=== PATIENT | female | born 1990 | race Caucasian/White ===

== ENCOUNTER → 2016-08-18 | Outpatient (CLI) | payer BC, OTHER ==
[~2016-08-18] MED LIST: FERR325T5 PO; IBUP-1050 PO; LEVE1TAB57 PO; PRENTAB26 PO
[2016-08-18 09:32] LABS: BASO ABS # 0.08 K/uL (0-0.2); COMPLETE YES; EOS % 3.5 %; IG% 0.1 %; LYMPH % 29.1 %; LYMPH ABS # 2.41 K/uL (1.2-3.4); MEAN CELL VOLUME 82.4 fL (80-100); MEAN CORPUSCULAR HEMOGLOBIN 28.6 pg (25-34); MEAN CORPUSCULAR HGB CONC 34.8 g/dl (32-36); MEAN PLATELET VOLUME 9.7 fL (7.4-10.4); NEUT % 60.3 %; PLATELET COUNT 440 K/uL (130-400); WHITE BLOOD COUNT 8.28 K/uL (4.8-10.8)
[2016-08-18 10:06] LABS: ALT/SGPT 19 U/L (12-78); AST/SGOT 8 U/L (15-37); BLOOD UREA NITROGEN 8 mg/dl (7-18); BUN/CREATININE RATIO 9.3 (10-20); CARBON DIOXIDE 28 mmol/L (21-32); CHLORIDE 107 mmol/L (98-107); CHOLESTEROL 204 mg/dl (0-200); CREATININE 0.91 mg/dl (0.60-1.20); GLUCOSE 87 mg/dl (70-99); POTASSIUM 4.2 mmol/L (3.5-5.1); SODIUM 142 mmol/L (136-145)
[2016-08-18 10:17] LABS: ALB/GLOB RATIO 1.1 (0.9-2); ALKALINE PHOSPHATASE 97 U/L (45-117); CHOLESTEROL/HDL RATIO 3.1; HDL CHOLESTEROL 65 mg/dl; LDL CHOLESTEROL CALCULATED 126 mg/dl; TRIGLYCERIDES 65 mg/dl (0-150); VERY LOW DENSITY LIPOPROT CALC 13 mg/dl
== END | disposition home or self-care (01) ==
LOC: C.LAB 09:03
PROVIDERS: ATTEND Psychiatry & Neurology Geriatric Psychiatry
DX: Z79.899 Other long term (current) drug therapy (principal)

== ENCOUNTER → 2017-09-30 | Outpatient (CLI) | payer OTHER ==
[2017-09-30 09:27] LABS: BASO % 0.4 %; BASO ABS # 0.04 K/uL (0-0.2); EOS % 4.3 %; EOS ABS # 0.41 K/uL (0-0.5); HEMATOCRIT 44.5 % (37-47); HEMOGLOBIN 15.3 g/dL (12.0-16.0); IG# 0.02 K/uL (0.00-0.02); LYMPH % 27.4 %; LYMPH ABS # 2.59 K/uL (1.2-3.4); MEAN CELL VOLUME 84.8 fL (80-100); MEAN CORPUSCULAR HEMOGLOBIN 29.1 pg (25-34); MEAN CORPUSCULAR HGB CONC 34.4 g/dl (32-36); MEAN PLATELET VOLUME 10.1 fL (7.4-10.4); MONO % 5.3 %; NEUT % 62.4 %; PLATELET COUNT 423 K/uL (130-400); RED CELL DISTRIBUTION WIDTH CV 13.2 % (11.5-14.5); RED CELL DISTRIBUTION WIDTH SD 40.7 fL (36.4-46.3); WHITE BLOOD COUNT 9.46 K/uL (4.8-10.8)
[2017-09-30 09:55] LABS: ALT/SGPT 13 U/L (12-78); BLOOD UREA NITROGEN 5 mg/dl (7-18); CALCIUM 9.1 mg/dl (8.5-10.1); CARBON DIOXIDE 27 mmol/L (21-32); CHOLESTEROL 180 mg/dl (0-200); CREATININE 0.98 mg/dl (0.60-1.20); GLUCOSE 98 mg/dl (70-99); POTASSIUM 4.1 mmol/L (3.5-5.1); SODIUM 139 mmol/L (136-145)
[2017-09-30 10:05] LABS: ALKALINE PHOSPHATASE 89 U/L (45-117); AST/SGOT 11 U/L (15-37); LDL CHOLESTEROL CALCULATED 102 mg/dl; TOTAL PROTEIN 7.8 gm/dl (6.4-8.2)
== END | disposition home or self-care (01) ==
LOC: C.LAB 09:05
PROVIDERS: ATTEND Physician Assistant
DX: Z79.899 Other long term (current) drug therapy (principal)

== ENCOUNTER 2022-05-29 13:06 | Inpatient (IN) ==
[2022-05-29 13:55] LABS: Hematocrit (blood only) 37.8 % (34.1-44.9); Hemoglobin 12.6 g/dl (12.0-16.0); Mean Corpuscular Hgb Conc 33.3 g/dL (32.0-36.0); Mean Corpuscular Volume 87.1 fL (80.0-100.0); Platelet Count 307 K/uL (130-400); RDW Coefficient of Variation 13.9 % (11.5-14.5); RDW Standard Deviation 44.2 fL (36.4-46.3); Red Blood Count 4.34 M/uL (3.93-5.22); White Blood Count 18.88 K/ul (4.8-10.8)
[2022-05-29] MEDS: SODIUM CHLORIDE 0.9% 1000ML 1,000 ML IV SCH ×4 (14:10→19:19)
[2022-05-29 14:16] LABS: Alanine Aminotransferase 10 U/L (7-52); Albumin Level 3.2 gm/dl (3.4-5.0); Alkaline Phosphatase 204 U/L (34-104); Anion Gap 7 (3-11); Aspartate Aminotransferase 10 U/L (13-39); BUN Creatinine Ratio 10.4 (10-20); Basophils # (auto) 0.07 K/uL (0-0.2); Basophils % (auto) 0.4 %; Bilirubin,Total 1.1 mg/dl (0.2-1.0); Blood Urea Nitrogen 23 mg/dl (6-23); Calcium 8.5 mg/dl (8.5-10.1); Carbon Dioxide 24 mmol/L (21-32); Chloride 99 mmol/L (98-107); Dohle Bodies 1+; Eosinophils # (auto) 0.08 K/uL (0-0.50); Eosinophils % (auto) 0.4 %; Est GFR (African American) 32.9 ml/min; Est GFR (Non-African American) 28.4 ml/min; Globulin 3.2 gm/dl (2.5-4.0); Glucose 164 mg/dl (70-99(Fasting)); Immature Granulocytes # (auto) 0.19 K/uL (0.00-0.02); Lipase 7 U/L (11-82); Lymphocytes # (auto) 0.66 K/uL (1.2-3.4); Lymphocytes % (auto) 3.5 %; Monocytes # (auto) 1.13 K/uL (0.24-0.82); Neutrophils # (auto) 16.75 K/uL (1.4-6.5); Neutrophils % (auto) 88.7 %; Potassium 3.5 mmol/L (3.5-5.1); Sodium 130 mmol/L (136-145); Total Protein 6.4 gm/dl (6.0-8.3)
[2022-05-29 14:23] LABS: Appearance Urine Turbid (Clear); Bacteria Urine Automated 4+ (Negative); Bilirubin Urine Negative (Negative); Blood Urine Trace (Negative); Color Urine Yellow; Epithelial Cell Urine Auto >30 /lpf (0-5); Glucose Urine UA Negative (Negative); Ketones Urine Negative (Negative); Leukocyte Esterase Urine 3+ (Negative); Nitrite Urine Negative (Negative); Protein Urine 2+ (Negative); RBC Urine Automated 0-4 /hpf (0-4); Urobilinogen Urine Negative (Negative); WBC Urine Automated >30 /hpf (0-5); pH Urine 5.5 (4.5-7.5)
[2022-05-29 14:33] LABS: Bilirubin Direct 0.3 mg/dl (0-0.2)
--- NOTE | 2022-05-29 14:35 | Emergency Department Note ---
History of Present Illness General Chief complaint: Vomiting Stated complaint: VOMITING, BACK PAIN,UTI, HEADACH Time Seen by Provider: 05/29/22 13:52 History of Present Illness Provider complaint: Nausea vomiting dysuria Onset (ago): day(s) 9 Maximum Pain Intensity: 9 Associated symptoms: + cough, + headaches, + malaise, + nausea/vomiting and + weakness; no chest pain 32-year-old female with history of bipolar disorder presents emergency department for nausea vomiting area. Patient reports that for the last 9 days she has been having dysuria that is progressively gotten worse and has been nausea and vomiting. Patient states she cannot keep anything in her. No hematemesis coffee-ground emesis or bilious vomiting. No melena or hematochezia. No discharge from the vagina. No hematuria. Patient reports she was diagnosed with UTI last week but did not take any medications that she was prescribed including her antibiotics. Home Medications Medication Instructions Recorded Confirmed Type gabapentin 800 mg tablet 800 mg PO TID #270 tabs 03/28/19 05/29/22 History levetiracetam 1,000 mg tablet 1,000 mg PO BID 90 days #180 tabs 04/07/22 05/29/22 Rx rizatriptan 10 mg tablet (Maxalt) 10 mg PO .COMPLEX PRN migraine 04/07/22 Rx headache #27 tabs verapamil 180 mg tablet,extended 180 mg PO DAILY 90 days #90 tabs 04/07/22 05/29/22 Rx release escitalopram oxalate 10 mg tablet 10 mg PO QAM 05/29/22 05/29/22 History lithium carbonate 600 mg capsule 600 mg PO AMHS 05/29/22 05/29/22 History propranolol 20 mg tablet 20 mg PO BID PRN Anxiety 05/29/22 05/29/22 History Allergies Allergy/AdvReac Type Severity Reaction Status Date / Time amoxicillin Allergy Unknown RASH Verified 04/07/22 10:15 Penicillins Allergy Verified 04/07/22 10:15 Past Med/Surg History Medical History Anxiety Bipolar affective disorder, current episode manic Common migraine without aura Epilepsy Focal epilepsy with impairment of consciousness Suicidal ideation Surgical History History of cholecystectomy History of oral surgery Family History Grandmother (Maternal) Diabetes Thyroid disease Social History Smoking Status: Current every day smoker Tobacco Type: E-cigarettes / Vaping Feels Safe at Home: Yes Review of Systems A total of 10 systems reviewed and were otherwise negative Physical Exam Vital Signs Vital Signs - 24 hr 05/29/22 13:28 05/29/22 13:31 05/29/22 14:09 Temperature 36.8 C Temperature Source Temporal Artery Scan Pulse Rate 86 Pulse Rate [Right Finger] Respiratory Rate 20 Respiratory Effort / Characteristics Non-Labored Respiratory Depth Normal Blood Pressure [Left Arm] 70/45 L Blood Pressure [Right Arm] 64/47 L Blood Pressure Mean [Left Arm] 53 Blood Pressure Mean [Right Arm] 52 Blood Pressure Position Sitting Blood Pressure Position [Left Arm] Sitting Blood Pressure Position [Right Arm] Sitting Pulse Oximetry 95 96 Oxygen Delivery Method Room Air Room Air Sepsis Recent Fever Within 48 Hours No Sepsis New/Unexplained Change in Mental Status N/A Sepsis Action Taken by Nursing No Action Required 05/29/22 14:10 05/29/22 14:24 05/29/22 14:39 Temperature Temperature Source Pulse Rate Pulse Rate [Right Finger] 89 90 Respiratory Rate Respiratory Effort / Characteristics Respiratory Depth Blood Pressure [Left Arm] 99/63 L Blood Pressure [Right Arm] 101/58 L Blood Pressure Mean [Left Arm] 75 Blood Pressure Mean [Right Arm] 72 Blood Pressure Position Blood Pressure Position [Left Arm] Blood Pressure Position [Right Arm] Pulse Oximetry 97 98 Oxygen Delivery Method Room Air Room Air Sepsis Recent Fever Within 48 Hours Sepsis New/Unexplained Change in Mental Status Sepsis Action Taken by Nursing 05/29/22 15:00 05/29/22 15:05 Temperature Temperature Source Pulse Rate Pulse Rate [Right Finger] 92 H 91 H Respiratory Rate 16 Respiratory Effort / Characteristics Respiratory Depth Blood Pressure [Left Arm] 99/63 L Blood Pressure [Right Arm] 99/63 L Blood Pressure Mean [Left Arm] 75 Blood Pressure Mean [Right Arm] 75 Blood Pressure Position Blood Pressure Position [Left Arm] Lying Blood Pressure Position [Right Arm] Lying Pulse Oximetry 95 94 Oxygen Delivery Method Room Air Room Air Sepsis Recent Fever Within 48 Hours Sepsis New/Unexplained Change in Mental Status Sepsis Action Taken by Nursing Physical Exam GENERAL: Ill-appearing HENT: Exam performed. -Head: Normocephalic and atraumatic. -Right Ear: External ear normal. No mastoid tenderness. -Left Ear: External ear normal. No mastoid tenderness. -Mouth/Throat: The oropharynx is clear and moist. No trismus in the jaw. No dental abscesses or uvula swelling. No oropharyngeal exudate or tonsillar abscesses. EYES: Conjunctivae and EOM are normal. Pupils are equal, round, and reactive to light. Right eye exhibits no discharge. Left eye exhibits no discharge. No scler al icterus. NECK: Normal range of motion. Neck supple. No JVD present. No spinous process tenderness present. No carotid bruit present. No rigidity. No tracheal deviation and normal range of motion present. No Brudzinski's sign and no Kernig's sign noted. CV: Tachycardic rate, regular rhythm, normal heart sounds and intact distal pulses. There is no peripheral edema. Palpable radial pulses bue. PULM/CHEST: Effort normal and breath sounds normal. No respiratory distress. No stridor. She has no wheezes. She has no rales. -Chest Wall: She exhibits no tenderness. ABD: The abdomen is soft. Tenderness over the suprapubic area. MUSC/SKEL: Normal range of motion. There is no peripheral edema, tenderness or deformity. LYMPH: No cervical adenopathy. NEURO: She is alert and oriented to person, place, and time. She has normal strength. No cranial nerve deficit or sensory deficit. GCS eye subscore is 4. GCS verbal subscore is 5. GCS motor subscore is 6. Cerebellar tests wnl. Course Course 1352: The patient was evaluated in room A3. A complete history and physical exam was performed Cardiac monitoring: An order was placed for continuous cardiac monitoring. The monitor shows a rate of 110 with sinus tachycardia rhythm Patient was found to be tachycardic and hypotensive at bedside. 2 large bore IVs were placed on the patient and IV fluids were immediate started on the patient 2 L normal saline wide open. Sepsis protocols were initiated. SUMNER protocol showed no free fluid in the abdomen and a collapsed IVC. 1518: Vital signs improved with IV fluids running. Patient's creatinine is greater than 2, therefore CT of the abdomen was conducted without contrast. Labs show leukocytosis of 18 and lactic acid of 2.9. Sodium 130 total bilirubin 1.1 direct bilirubin 0.3 troponin 16.6 urinalysis does not appear infected. Marshall level is mildly elevated 1.5. This is thought to be due to the patient's acute kidney injury. Patient reports no suicidal homicidal ideation patient reports not taking excessive amounts of her lithium. CT of the abdomen shows pyelonephritis. Patient treated with Cipro IV piggyback. Patient be admitted to the [facility] team. Administered Medications Sodium Chloride (Nss 1000ml) 1,000 mls @ 999 mls/hr IV .Q1H1M TAMIR Stop: 05/29/22 16:00 Last Admin: 05/29/22 15:02 Dose: 999 mls/hr Documented By: Infusion: 05/29/22 15:02 Dose: 999 mls/hr Documented By: Admin: 05/29/22 14:10 Dose: 999 mls/hr Documented By: RADHA Ciprofloxacin (Cipro / D5w) 400 mg in 200 mls @ 100 mls/hr IV NOW STA; Protocol Stop: 05/29/22 16:53 Last Admin: 05/29/22 15:08 Dose: 100 mls/hr Documented By: MEDHAT Critical Care Time Critical Care Time: Yes Total Critical Care Time: 36 I have personally spent greater than 36 minutes of critical care time in the direct management of this patient. This includes bedside care, interpretation of diagnostic studies, and testing, discussion with consultants, patient, and family members, and other required patient management activities. This 36 minutes is in excess of all separately billable procedures. Medical Decision Making Laboratory Data Result diagrams: 05/29/22 13:43 05/29/22 13:43 Lab Results 05/29/22 05/29/22 05/29/22 Range/Units 13:43 13:43 14:04 WBC 18.88 H (4.8-10.8) K/ul RBC 4.34 (3.93-5.22) M/uL Hgb 12.6 (12.0-16.0) g/dl Hct 37.8 (34.1-44.9) % MCV 87.1 (80.0-100.0) fL MCH 29.0 (25.0-34.0) pg MCHC 33.3 (32.0-36.0) g/dL RDW Std Deviation 44.2 (36.4-46.3) fL RDW Coeff of Charlie 13.9 (11.5-14.5) % Plt Count 307 (130-400) K/uL MPV 10.0 (9.4-12.3) fL Immature Gran % (Auto) 1.0 % Neut % (Auto) 88.7 % Lymph % (Auto) 3.5 % [place] % (Auto) 6.0 % Eos % (Auto) 0.4 % Baso % (Auto) 0.4 % Neut # (Auto) 16.75 H (1.4-6.5) K/uL Lymph # (Auto) 0.66 L (1.2-3.4) K/uL [place] # (Auto) 1.13 H (0.24-0.82) K/uL Eos # (Auto) 0.08 (0-0.50) K/uL Baso # (Auto) 0.07 (0-0.2) K/uL Immature Gran # (Auto) 0.19 H (0.00-0.02) K/uL Dohle Bodies 1+ PT (9.0-12.0) Seconds INR (0.9-1.1) APTT (21.0-31.0) Seconds PTT Ratio Sodium 130 L (136-145) mmol/L Potassium 3.5 (3.5-5.1) mmol/L Chloride 99 (98-107) mmol/L Carbon Dioxide 24 (21-32) mmol/L Anion Gap 7 (3-11) BUN 23 (6-23) mg/dl Creatinine 2.21 H (0.6-1.2) mg/dl Est Cr Clr Drug Dosing Not Reportable Est GFR ( Amer) 32.9 ml/min Est GFR (Non-Af Amer) 28.4 ml/min BUN/Creatinine Ratio 10.4 (10-20) Glucose 164 H (70-99(Fasting)) mg/dl Lactate (0.4-2.0) mmol/L Calcium 8.5 (8.5-10.1) mg/dl Magnesium 2.0 (1.7-2.4) mg/dl Total Bilirubin 1.1 H (0.2-1.0) mg/dl Direct Bilirubin 0.3 H (0-0.2) mg/dl AST 10 L (13-39) U/L ALT 10 (7-52) U/L Alkaline Phosphatase 204 H (34-104) U/L Troponin I High Sens 16.6 H (0-14) pg/ml Total Protein 6.4 (6.0-8.3) gm/dl Albumin 3.2 L (3.4-5.0) gm/dl Globulin 3.2 (2.5-4.0) gm/dl Albumin/Globulin Ratio 1.0 (0.9-2) Lipase 7 L (11-82) U/L Procalcitonin (0-0.5) ng/ml Urine Color Yellow Urine Appearance Turbid A (Clear) Urine pH 5.5 (4.5-7.5) Ur Specific [place] 1.010 (1.000-1.030) Urine Protein 2+ H (Negative) Urine Glucose (UA) Negative (Negative) Urine Ketones Negative (Negative) Urine Blood Trace H (Negative) Urine Nitrite Negative (Negative) Urine Bilirubin Negative (Negative) Urine Urobilinogen Negative (Negative) Ur Leukocyte Esterase 3+ H (Negative) Urine WBC (Auto) >30 H (0-5) /hpf Urine RBC (Auto) 0-4 (0-4) /hpf U Hyaline Cast (Auto) 1-5 (0-5) /lpf U Epithel Cells (Auto) >30 H (0-5) /lpf Urine Bacteria (Auto) 4+ H (Negative) POC Ur Test (NEG) Marshall (0.6-1.2) mmol/L SARS-CoV-2, RNA, NAAT (NEGATIVE) 05/29/22 05/29/22 05/29/22 Range/Units 14:04 14:12 14:12 WBC (4.8-10.8) K/ul RBC (3.93-5.22) M/uL Hgb (12.0-16.0) g/dl Hct (34.1-44.9) % MCV (80.0-100.0) fL MCH (25.0-34.0) pg MCHC (32.0-36.0) g/dL RDW Std Deviation (36.4-46.3) fL RDW Coeff of Charlie (11.5-14.5) % Plt Count (130-400) K/uL MPV (9.4-12.3) fL Immature Gran % (Auto) % Neut % (Auto) % Lymph % (Auto) % [place] % (Auto) % Eos % (Auto) % Baso % (Auto) % Neut # (Auto) (1.4-6.5) K/uL Lymph # (Auto) (1.2-3.4) K/uL [place] # (Auto) (0.24-0.82) K/uL Eos # (Auto) (0-0.50) K/uL Baso # (Auto) (0-0.2) K/uL Immature Gran # (Auto) (0.00-0.02) K/uL Dohle Bodies PT 11.9 (9.0-12.0) Seconds INR 1.1 (0.9-1.1) APTT 35.3 H (21.0-31.0) Seconds PTT Ratio 1.3 Sodium (136-145) mmol/L Potassium (3.5-5.1) mmol/L Chloride (98-107) mmol/L Carbon Dioxide (21-32) mmol/L Anion Gap (3-11) BUN (6-23) mg/dl Creatinine (0.6-1.2) mg/dl Est Cr Clr Drug Dosing Est GFR ( Amer) ml/min Est GFR (Non-Af Amer) ml/min BUN/Creatinine Ratio (10-20) Glucose (70-99(Fasting)) mg/dl Lactate 2.9 H* (0.4-2.0) mmol/L Calcium (8.5-10.1) mg/dl Magnesium (1.7-2.4) mg/dl Total Bilirubin (0.2-1.0) mg/dl Direct Bilirubin (0-0.2) mg/dl AST (13-39) U/L ALT (7-52) U/L Alkaline Phosphatase (34-104) U/L Troponin I High Sens (0-14) pg/ml Total Protein (6.0-8.3) gm/dl Albumin (3.4-5.0) gm/dl Globulin (2.5-4.0) gm/dl Albumin/Globulin Ratio (0.9-2) Lipase (11-82) U/L Procalcitonin (0-0.5) ng/ml Urine Color Urine Appearance (Clear) Urine pH (4.5-7.5) Ur Specific [place] (1.000-1.030) Urine Protein (Negative) Urine Glucose (UA) (Negative) Urine Ketones (Negative) Urine Blood (Negative) Urine Nitrite (Negative) Urine Bilirubin (Negative) Urine Urobilinogen (Negative) Ur Leukocyte Esterase (Negative) Urine WBC (Auto) (0-5) /hpf Urine RBC (Auto) (0-4) /hpf U Hyaline Cast (Auto) (0-5) /lpf U Epithel Cells (Auto) (0-5) /lpf Urine Bacteria (Auto) (Negative) POC Ur Test NEG (NEG) [place] (0.6-1.2) mmol/L SARS-CoV-2, RNA, NAAT (NEGATIVE) 05/29/22 05/29/22 05/29/22 Range/Units 14:12 14:12 14:32 WBC (4.8-10.8) K/ul RBC (3.93-5.22) M/uL Hgb (12.0-16.0) g/dl Hct (34.1-44.9) % MCV (80.0-100.0) fL MCH (25.0-34.0) pg MCHC (32.0-36.0) g/dL RDW Std Deviation (36.4-46.3) fL RDW Coeff of Charlie (11.5-14.5) % Plt Count (130-400) K/uL MPV (9.4-12.3) fL Immature Gran % (Auto) % Neut % (Auto) % Lymph % (Auto) % [place] % (Auto) % Eos % (Auto) % Baso % (Auto) % Neut # (Auto) (1.4-6.5) K/uL Lymph # (Auto) (1.2-3.4) K/uL [place] # (Auto) (0.24-0.82) K/uL Eos # (Auto) (0-0.50) K/uL Baso # (Auto) (0-0.2) K/uL Immature Gran # (Auto) (0.00-0.02) K/uL Dohle Bodies PT (9.0-12.0) Seconds INR (0.9-1.1) APTT (21.0-31.0) Seconds PTT Ratio Sodium (136-145) mmol/L Potassium (3.5-5.1) mmol/L Chloride (98-107) mmol/L Carbon Dioxide (21-32) mmol/L Anion Gap (3-11) BUN (6-23) mg/dl Creatinine (0.6-1.2) mg/dl Est Cr Clr Drug Dosing Est GFR ( Amer) ml/min Est GFR (Non-Af Amer) ml/min BUN/Creatinine Ratio (10-20) Glucose (70-99(Fasting)) mg/dl Lactate (0.4-2.0) mmol/L Calcium (8.5-10.1) mg/dl Magnesium (1.7-2.4) mg/dl Total Bilirubin (0.2-1.0) mg/dl Direct Bilirubin (0-0.2) mg/dl AST (13-39) U/L ALT (7-52) U/L Alkaline Phosphatase (34-104) U/L Troponin I High Sens (0-14) pg/ml Total Protein (6.0-8.3) gm/dl Albumin (3.4-5.0) gm/dl Globulin (2.5-4.0) gm/dl Albumin/Globulin Ratio (0.9-2) Lipase (11-82) U/L Procalcitonin 12.19 H (0-0.5) ng/ml Urine Color Urine Appearance (Clear) Urine pH (4.5-7.5) Ur Specific [place] (1.000-1.030) Urine Protein (Negative) Urine Glucose (UA) (Negative) Urine Ketones (Negative) Urine Blood (Negative) Urine Nitrite (Negative) Urine Bilirubin (Negative) Urine Urobilinogen (Negative) Ur Leukocyte Esterase (Negative) Urine WBC (Auto) (0-5) /hpf Urine RBC (Auto) (0-4) /hpf U Hyaline Cast (Auto) (0-5) /lpf U Epithel Cells (Auto) (0-5) /lpf Urine Bacteria (Auto) (Negative) POC Ur Test (NEG) [place] 1.5 H (0.6-1.2) mmol/L SARS-CoV-2, RNA, NAAT NEGATIVE (NEGATIVE) Imaging Data Radiologist's Impression: Chest X-Ray 05/29/22 13:53 XR chest 1V portable HISTORY: 32 years-old Female Sepsis acute sepsis COMPARISON: 12/16/2007 TECHNIQUE: AP view of the chest FINDINGS: Cardiomediastinal and hilar silhouettes are within normal limits. No pneumo thorax, pleural effusion, airspace consolidation or overt pulmonary edema. Bones appear grossly intact. IMPRESSION: No acute process. ACT 112: Negative or not required by law. The above report was generated using voice recognition software. It may contain grammatical, syntax or spelling errors. Electronically signed by: Sailnas Armstrong M.D. 05/29/2022 2:37 PM Abdomen/Pelvis CT 05/29/22 14:[address] WITHOUT CONTRAST CT DOSE: 674.66 mGy.cm HISTORY: Acute dysuria with bilateral flank pain tiffany dysuria hypotension ro kidney stone TECHNIQUE: Multiaxial CT images of the abdomen and pelvis were performed without contrast. A dose lowering technique was utilized adhering to the principles of ALARA. COMPARISON STUDY: Pelvic ultrasound 09/28/2014 FINDINGS: Trace pleural effusions. Subsegmental bibasilar atelectasis. No pneumatosis or pneumoperitoneum. The unenhanced spleen measures within the upper limits of normal in size. Cholecystectomy. The liver, pancreas and adrenal glands are within normal limits. Right greater than left bilateral perinephric stranding and pelvocaliectasis. No jeff hydronephrosis or urolith identified. Circumferential wall thickening of the urinary bladder. IUD of the pelvis appears to be in satisfactory positioning. No adnexal mass lesions. Unremarkable aorta. No lymphadenopathy. No bowel obstruction. Mild wall thickening of the duodenum is likely secondary to the adjacent renal findings. Air-fluid levels are noted throughout the large and small bowel. Noninflamed appendix. Unremarkable soft tissues. Moderate disc space narrowing with posterior disc osteophyte complex at L5-S1. No acute fracture. IMPRESSION: 1. Right greater than left perinephric inflammatory stranding with associated pelvocaliectasis and urinary bladder wall thickening. No urolith or jeff hydronephrosis. Findings are suggestive of an ascending infection with cystitis. 2. No bowel obstruction or bowel wall thickening. 3. Trace pleural effusions. 4. Cholecystectomy. ACT 112: Negative or not required by law. The above report was generated using voice recognition software. It may contain grammatical, syntax or spelling errors. Electronically signed by: Salinas Armstrong M.D. 05/29/2022 3:10 PM ECG Data Indication: + tachycardia Rate (beats per minute): 90 Rhythm: + normal sinus ECG Intervals/blocks: + Normal QRS, + Normal [place] and + Normal QT-c ECG ST segments: + Normal ST segments [facility] Narrative 1352: The patient was evaluated in room A3. A complete history and physical exam was performed Cardiac monitoring: An order was placed for continuous cardiac monitoring. The monitor shows a rate of 110 with sinus tachycardia rhythm Patient was found to be tachycardic and hypotensive at bedside. 2 large bore IVs were placed on the patient and IV fluids were immediate started on the patient 2 L normal saline wide open. Sepsis protocols were initiated. SUMNER protocol showed no free fluid in the abdomen and a collapsed IVC. 1518: Vital signs improved with IV fluids running. Patient's creatinine is greater than 2, therefore CT of the abdomen was conducted without contrast. Labs show leukocytosis of 18 and lactic acid of 2.9. Sodium 130 total bilirubin 1.1 direct bilirubin 0.3 troponin 16.6 urinalysis does not appear infected. Marshall level is mildly elevated 1.5. This is thought to be due to the patient' s acute kidney injury. Patient reports no suicidal homicidal ideation patient reports not taking excessive amounts of her lithium. CT of the abdomen shows pyelonephritis. Patient treated with Cipro IV piggyback. Patient be admitted to the [facility] team. Impression & Plan Sepsis, Pyelonephritis Discharge Plan Visit Data Chief Complaint: Vomiting Stated Complaint: VOMITING, BACK PAIN,UTI, HEADACH ED Provider: En Walls Discharge Problem: Sepsis, Pyelonephritis Patient Disposition: Admitted As Inpatient Forms Stand Alone Forms: [facility] Prescriptions Prescriptions: No Action rizatriptan [Maxalt] 10 mg tablet 10 mg PO .COMPLEX PRN (Reason: migraine headache) Qty: 27 3RF Rx Instructions: take 1 tab at onset of headache; if no relief may repeat in 2hr prn verapamil 180 mg tablet extended release 180 mg PO DAILY 90 Days Qty: 90 3RF levetiracetam 1,000 mg tablet 1,000 mg PO BID 90 Days Qty: 180 3RF gabapentin 800 mg tablet 800 mg PO TID Qty: 270 Rx Instructions: morning,noon and bedtime lithium carbonate 600 mg capsule 600 mg PO AMHS propranolol 20 mg tablet 20 mg PO BID PRN (Reason: Anxiety) escitalopram oxalate 10 mg tablet 10 mg PO QAM Referrals Referrals: Adiel Yin MD [Primary Care Provider] -
[2022-05-29 14:37] LABS: INR 1.1 (0.9-1.1); Partial Thromboplastin Ratio 1.3; Partial Thromboplastin Time 35.3 Seconds (21.0-31.0); Prothrombin Time 11.9 Seconds (9.0-12.0)
[2022-05-29 14:38] LABS: Troponin I High Sensitivity 16.6 pg/ml (0-14)
--- NOTE | 2022-05-29 14:38 | XRay Report ---
XR chest 1V portable HISTORY: 32 years-old Female Sepsis acute sepsis COMPARISON: 12/16/2007 TECHNIQUE: AP view of the chest FINDINGS: Cardiomediastinal and hilar silhouettes are within normal limits. No pneumothorax, pleural effusion, airspace consolidation or overt pulmonary edema. Bones appear grossly intact. IMPRESSION: No acute process. ACT 112: Negative or not required by law. The above report was generated using voice recognition software. It may contain grammatical, syntax o r spelling errors. Electronically signed by: Salinas Armstrong M.D. 05/29/2022 2:37 PM
[2022-05-29] MEDS ORDERED: CIPROFLOXACIN / D5W 400 MG/200 ML BAG IV STA (14:54)
--- NOTE | 2022-05-29 15:12 | CT Scan Report ---
ABDOMEN AND PELVIS CT WITHOUT CONTRAST CT DOSE: 674.66 mGy.cm HISTORY: Acute dysuria with bilateral flank pain tiffany dysuria hypotension ro kidney stone TECHNIQUE: Multiaxial CT images of the abdomen and pelvis were performed without contrast. A dose lo wering technique was utilized adhering to the principles of ALARA. COMPARISON STUDY: Pelvic ultrasound 09/28/2014 FINDINGS: Trace pleural effusions. Subsegmental bibasilar atelectasis. No pneumatosis or pneumoperito neum. The unenhanced spleen measures within the upper limits of normal in size. Cholecystectomy. The liver, pancreas and adrenal glands are within normal limits. Right greater than left bilateral perinephric stranding and pelvocaliectasis. No jeff hydronephrosis or urolith identified. Circumferential wall thickening of the urinary bladder. IUD of the pelvis gabriel ears to be in satisfactory positioning. No adnexal mass lesions. Unremarkable aorta. No lymphadenopat hy. No bowel obstruction. Mild wall thickening of the duodenum is likely secondary to the adjacent renal findings. Air-fluid levels are noted throughout the large and small bowel. Noninflamed appendix. Unre markable soft tissues. Moderate disc space narrowing with posterior disc osteophyte complex at L5-S1. No acute fracture. IMPRESSION: 1. Right greater than left perinephric inflammatory stranding with associated pelvocaliectasis and ur inary bladder wall thickening. No urolith or jeff hydronephrosis. Findings are suggestive of an asce nding infection with cystitis. 2. No bowel obstruction or bowel wall thickening. 3. Trace pleural effusions. 4. Cholecystectomy. ACT 112: Negative or not required by law. The above report was generated using voice recognition software. It may contain grammatical, syntax o r spelling errors. Electronically signed by: Salinas Armstrong M.D. 05/29/2022 3:10 PM
--- NOTE | 2022-05-29 15:42 | History & Physical Report ---
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 Sepsis POA Right-sided pyelonephritis Acute kidney injury Mild hyponatremia Reported UTI-like symptoms since past 5 days, fever and back pain for past 3 days Hypotensive on presentation; saturating well on room air. Afebrile in the ED Lactate2.9 WBC18.8 Creatinine2.29; baseline creatinine of 0.8 4 weeks back Urinalysis shows 4+ bacteria CT abdomen pelvis shows right greater than left perinephric inflammatory stranding and urinary bladder thickening. Plan; -Start on IV ceftriaxone. Follow-up on urine culture and blood culture results; de-escalate antibiotic as per culture results -Continue NS at 125 cc/h. Repeat lactate pending -Follow-up on BMP tomorrow a.m. for follow-up on AVELINO and hyponatremia Elevated lithium level -Serum lithium level is 1.5; likely due to AVELINO. -Plan is to hold lithium; repeat serum lithium level tomorrow a.m. Chronic conditions; Seizure disorderadjust Keppra dosing as per GFR. Started on 500 mg twice daily. Will discuss with pharmacy regarding dosing. Gabapentin dose adjusted to 300 twice daily Continue escitalopram, verapamil and propanolol DVT heparin full code History of Present Illness Chief Complaint: chills, urinary symptoms, back pain Primary Care Provider: Adiel Yin MD This is a 32yo F with a PMH of bipolar disorder, seizure disorder, migraine headaches, anxiety who presents with worsening urinary symptoms and chills over the past week. Was diagnosed with a UTI last week with dysuria and increased urgency but did not start antibiotic. Over past week, patient has developed chills, fever, lightheadedness, back pain R>L. Endorses poor PO intake, dark concentrated urine and worsened migraine headaches. Feeling much improved with IV fluids in ER. Still experiencing sharp pain in R lower back. Denies syncope, chest pain, SOB, wheezing, hematuria, constipation or diarrhea. Took AM medications today. Allergies Allergy/AdvReac Type Severity Reaction Status Date / Time amoxicillin Allergy Unknown RASH Verified 04/07/22 10:15 Penicillins Allergy Verified 04/07/22 10:15 Home Medications Medication Instructions Recorded Confirmed Type gabapentin 800 mg tablet 800 mg PO TID #270 tabs 03/28/19 05/29/22 History levetiracetam 1,000 mg tablet 1,000 mg PO BID 90 days #180 tabs 04/07/22 05/29/22 Rx rizatriptan 10 mg tablet (Maxalt) 10 mg PO .COMPLEX PRN migraine 04/07/22 05/29/22 Rx headache #27 tabs verapamil 180 mg tablet,extended 180 mg PO DAILY 90 days #90 tabs 04/07/22 05/29/22 Rx release escitalopram oxalate 10 mg tablet 10 mg PO QAM 05/29/22 05/29/22 History lithium carbonate 600 mg capsule 600 mg PO AMHS 05/29/22 05/29/22 History propranolol 20 mg tablet 20 mg PO BID PRN Anxiety 05/29/22 05/29/22 History Past Med/Surg History Medical History Anxiety Bipolar affective disorder, current episode manic Common migraine without aura Epilepsy Focal epilepsy with impairment of consciousness Suicidal ideation Surgical History History of cholecystectomy History of oral surgery Family History Grandmother (Maternal) Diabetes Thyroid disease Social History Smoking Status: Current every day smoker Tobacco Type: E-cigarettes / Vaping Hx Alcohol Use: Yes Alcohol Intake Frequency: 2-4 x/Month Hx Substance Use: No Feels Safe at Home: Yes Review of Systems Review of Systems: At least ten systems reviewed and negative except as noted in the HPI. Physical Exam Physical Exam: Constitutional: WD/WN, vitals as above, NAD, sitting up in bed, pleasant, conversing easily Respiratory: normal respiratory effort, lungs clear to auscultation, no wheeze, rales, rhonchi. Normal insp/exp effort, no accessory muscle use Cardiovascular: RRR, no murmur, no edema Vessels: no JVD or carotid bruit Chest: normal inspection of chest Abdomen: Suprapubic tenderness present. Right costophrenic angle tenderness. Musculoskeletal: no cyanosis or clubbing, extremities motor strength 5/5 Skin: no rashes, warm and dry normal turgor Neurologic: PERRL, EOMI, accommodation nl, no face palsy, no dysarthria CN's II- XI intact bilaterally and moves all extremities Psychiatric: A+Ox3, euthymic affect Lymphatic: no cervical or axillary lymphadenopathy : deferred Results & Data Results & Data ([facility]) Vital Signs (Past 12 Hours) Vital Signs Temp Pulse Pulse Resp BP BP Pulse Ox 05/29/22 15:05 91 H 99/63 L 94 05/29/22 15:00 92 H 16 99/63 L 95 05/29/22 14:39 90 98 05/29/22 14:24 89 101/58 L 97 05/29/22 14:10 99/63 L 05/29/22 14:09 96 05/29/22 13:31 70/45 L 64/47 L 05/29/22 13:28 36.8 C 86 20 95 O2 Del Method 05/29/22 15:05 Room Air 05/29/22 15:00 Room Air 05/29/22 14:39 Room Air 05/29/22 14:24 Room Air 05/29/22 14:10 05/29/22 14:09 Room Air 05/29/22 13:31 05/29/22 13:28 Room Air Laboratory Results Short CBC 05/29/22 Range/Units 13:43 WBC 18.88 H (4.8-10.8) K/ul Hgb 12.6 (12.0-16.0) g/dl Hct 37.8 (34.1-44.9) % Plt Count 307 (130-400) K/uL [facility] 05/29/22 13:43 Sodium 130 L Potassium 3.5 Chloride 99 Carbon Dioxide 24 BUN 23 Creatinine 2.21 H Glucose 164 H Calcium 8.5 Liver Function 05/29/22 Range/Units 13:43 Total Bilirubin 1.1 H (0.2-1.0) mg/dl Direct Bilirubin 0.3 H (0-0.2) mg/dl AST 10 L (13-39) U/L ALT 10 (7-52) U/L Alkaline Phosphatase 204 H (34-104) U/L Albumin 3.2 L (3.4-5.0) gm/dl Urine 05/29/22 Range/Units 14:04 Urine Color Yellow Urine Appearance Turbid A (Clear) Urine pH 5.5 (4.5-7.5) Ur Specific [place] 1.010 (1.000-1.030) Urine Protein 2+ H (Negative) Urine Glucose (UA) Negative (Negative) Diagnostic Findings Chest X-Ray 05/29/22 13:53 XR chest 1V portable HISTORY: 32 years-old Female Sepsis acute sepsis COMPARISON: 12/16/2007 TECHNIQUE: AP view of the chest FINDINGS: Cardiomediastinal and hilar silhouettes are within normal limits. No pneumothorax, pleural effusion, airspace consolidation or overt pulmonary edema. Bones appear grossly intact. IMPRESSION: No acute process. ACT 112: Negative or not required by law. The above report was generated using voice recognition software. It may contain grammatical, syntax or spelling errors. Electronically signed by: Salinas Armstrong M.D. 05/29/2022 2:37 PM Abdomen/Pelvis CT 05/29/22 14:[address] WITHOUT CONTRAST CT DOSE: 674.66 mGy.cm HISTORY: Acute dysuria with bilateral flank pain avelino dysuria hypotension ro kidney stone TECHNIQUE: Multiaxial CT images of the abdomen and pelvis were performed without contrast. A dose lowering technique was utilized adhering to the principles of ALARA. COMPARISON STUDY: Pelvic ultrasound 09/28/2014 FINDINGS: Trace pleural effusions. Subsegmental bibasilar atelectasis. No pneumatosis or pneumoperitoneum. The unenhanced spleen measures within the upper limits of normal in size. Cholecystectomy. The liver, pancreas and adrenal glands are within normal limits. Right greater than left bilateral perinephric stranding and pelvocaliectasis. No jeff hydronephrosis or urolith identified. Circumferential wall thickening of the urinary bladder. IUD of the pelvis appears to be in satisfactory positioning. No adnexal mass lesions. Unremarkable aorta. No lymphadenopathy. No bowel obstruction. Mild wall thickening of the duodenum is likely secondary to the adjacent renal findings. Air-fluid levels are noted throughout the large and small bowel. Noninflamed appendix. Unremarkable soft tissues. Moderate disc space narrowing with posterior disc osteophyte complex at L5-S1. No acute fracture. IMPRESSION: 1. Right greater than left perinephric inflammatory stranding with associated pelvocaliectasis and urinary bladder wall thickening. No urolith or jeff hydronephrosis. Findings are suggestive of an ascending infection with cystitis. 2. No bowel obstruction or bowel wall thickening. 3. Trace pleural effusions. 4. Cholecystectomy. ACT 112: Negative or not required by law. The above report was generated using voice recognition software. It may contain grammatical, syntax or spelling errors. Electronically signed by: Salinas Armstrong M.D. 05/29/2022 3:10 PM Code Status & VTE Plan VTE Prophylaxis Plan VTE Prophylaxis will be ordered: Yes Supervising Physician Co-Signing Physician Notes Documentation reviewed and edited appropriately. Patient seen and examined independently. (1) Sepsis Acute renal failure type: unspecified Sepsis acute organ dysfunction status: with acute organ dysfunction Sepsis type: sepsis due to unspecified organism Severe sepsis acute organ dysfunction type: acute renal failure Severe sepsis shock status: without septic shock Qualified Code(s): A41.9 - Sepsis, unsp ecified organism; R65.20 - Severe sepsis without septic shock; N17.9 - Acute kidney failure, unspecified
[2022-05-29] MEDS ORDERED: cefTRIAXone SODIUM 2000MG/70ML D5W IV ONE (15:51)
[2022-05-29] MEDS ORDERED: cefTRIAXone SODIUM 2,000 MG in DEXTROSE 5% 50 ML IV SCH (16:00)
[2022-05-29] MEDS ORDERED: HYDROmorphone INJ 0.5 MG/0.5 ML SYR IV PRN (16:10)
[2022-05-29] MEDS ORDERED: POLYETHYLENE (MIRALAX) 17 GM PACK PO PRN (17:02)
[2022-05-29] MEDS ORDERED: PROPRANOLOL HCL 20 MG TAB PO PRN (17:02)
[2022-05-29] MEDS ORDERED: ACETAMINOPHEN 325 MG TAB PO PRN (17:02)
--- NOTE | 2022-05-29 17:58 | Electrocardiogram Report ---
Test Reason : Blood Pressure : / mmHG Vent. Rate : 090 BPM Atrial Rate : 090 BPM P-R Int : 154 ms QRS Dur : 088 ms QT Int : 362 ms P-R-T Axes : 013 046 019 degrees QTc Int : 442 ms Normal sinus rhythm Nonspecific T wave abnormality Abnormal ECG When compared with ECG of 20-MAR-2014 11:15, Inverted T waves have replaced nonspecific T wave abnormality in Anterior leads Confirmed by Rico Santana ([id number]) on 05/29/2022 5:57:55 PM Referred By: REFERRED SELF Confirmed By:Manoj Santana
[2022-05-29] MEDS ORDERED: SODIUM CHLORIDE 0.9% 500 ML IV SCH ×2 (19:30→23:00)
[2022-05-29] MEDS: ONDANSETRON INJ 2 MG/ML 2 ML VIAL IV PRN (19:47)
[2022-05-29] MEDS ORDERED: VANCOMYCIN CONSULT ACTIVE PRN (20:44)
[2022-05-29] MEDS ORDERED: VANCOMYCIN HCL 1,000 MG in SODIUM CHLORIDE 0.9% 250 ML IV SCH (20:45)
[2022-05-29] MEDS ORDERED: SODIUM CHLORIDE 0.9% 1000ML 1,000 ML IV SCH (20:45)
[2022-05-29] MEDS ORDERED: VANCOMYCIN HCL 2,000 MG in SODIUM CHLORIDE 0.9% 500 ML IV ONE (21:00)
[2022-05-29] MEDS: MEROPENEM 500 MG in SYRINGE 0 ML IV SCH (21:23)
[2022-05-29] MEDS: HEPARIN SOD 5,000 UNIT/0.5 ML VIAL SQ SCH (21:25)
[2022-05-29] MEDS: GABAPENTIN 300 MG CAP PO SCH (23:05)
[2022-05-29] MEDS ORDERED: KETOROLAC TROMETHAMINE 15 MG/ML VIAL IV ONE (23:53)
[2022-05-30] MEDS ORDERED: STAT IV Infusion **Titration per Protocol STA (02:29)
[2022-05-30] MEDS ORDERED: NOREPINEPHRINE/D5W 4 MG/250 ML IV ONE (02:29)
--- NOTE | 2022-05-30 02:41 | Critical Care Consultation ---
Date of Consultation May 30, 2022 Assessment & Plan (1) Pyelonephritis: (2) Sepsis: (3) Anxiety: (4) Mood disorder: (5) Focal epilepsy with impairment of consciousness: (6) Common migraine without aura: (7) Septic shock: Plan Reason Critically Ill: 32 YOF transferred to ICU for severe sepsis secondary to pyelonephritis from UTI. She is with pelvocaliectasis which is likely related to her infection and without other evidence of obstruction or hydronephrosis. She has received approx 5 liters of Crystalloid with minimal Urine output. She will require vasopressors at this time. Antibiotic therapy has been broadened to Meropenem and Vancomycin. Neuro - Bi-Polar mood disorder, Focal Epilepsy, Migraines - lithium level elevated on arrival- hold with renal dysfunction and follow - Continue Keppra 500mg IV q12 - She is mentating well at this point in time and is without meningismus signs - Will hold her prophylactic therapy of Verapamil and Propranolol in the setting of septic shock- may need abortive medication Cardiac - Shock, - Shock at this time most likely is severe sepsis - resuscitated on admission - remains hypotensive +4liter fluid balance- hold on further crystalloid - Bedside POCUS consistent with adequate fluid volume status, IJ as well does not collapse with inspiratory force - vasopressor support with LEVOphed initially - if remains hypotensive will require central line and arterial line - Add Vasopressin as second agent if needed - Random Cortisol 21 on admission - if she would need to pressors and with rising requirements would add stress dose Respiratory - No acute needs at this time Admission CXR reviewed, no acute process, is on room air GI - No acute needs HX of chronic diarrhea with gall bladder removal RENAL/LYTES - ARF, Pyelonephritis - Acute 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 to 2.2 from 0.8- secondary to UTI and pyelonephritis - pelvocaliectasis should improve with treating her underlying infection - follow up imaging with resolution - renal dose medications avoid nephrotoxins as able - Urine output has been ~ 40ml an hour since admission - Replete electrolytes - Complicated UTI, As above ENDO - No acute needs HEME - Luekocytosis, Anemia - severe sepsis- follow CBC, Platelet counts - Anemia- normocytic likely following dilutional following 5liters of crystalloid- no evidence of bleeding on exam ID - Severe sepsis with shock and organ dysfunction from UTI with pyelonephritis - Broadened out abx coverage agree with - Meropenem and Vancomycin - Blood culture and urine culture pending - Elevated PCT and CRP is pending- follow q72 hours for response LINES/IV ACCESS - PIV, [place] Continue use of these lines- Low threshold to add central line and arterial line DVT PROPHYLAXIS - SCDS, hold chemoprophy at this time and follow HGB DISPO ICU until severe sepsis is controlled without pressor requirement I have personally spent 45 minutes of critical care time in the direct management of this patient. This is a life/limb threatening event. This includes time spent evaluating patient, direct bedside care, chart review, placing orders, interpretation of diagnostic studies, discussion with consultants, patient, and family members, as well as other required patient management activities. This time is exclusive of all separately billable procedures, and separate from and in addition to any other critical care service time, and procedures Thank you for allowing us to participate in the care of this patient. Please refer to my attending physician's documentation for any further recommendations. History of Present Illness Reason for Consultation: septic shock Requesting Physician: jose r Attending Physician: Karthikeyan Adams MD History of Present Illness 32 YOF admitted earlier in the day for pyelonephritis secondary to UTI. Patient had CT scan of the abdomen completed during her work-up in the EMD and is with pelvocaliectasis without hydronephrosis or other evidence of obstruction or stone. Patient states that about a week ago she started having urinary symptoms and was dx with UTI. She did not take her abx. On admission to the hospital patient was febrile with Tmax of 39.2, HR of 92, and 60/40s in the EMD that was initially volume responsive with BP up to 107/63- lactate 2.9 on arrival and cleared to 1.3 at midnight. WBC noted at 18 and elevated PCT of 12.19. She received Ciprofloxacin and Rocephin on admission. Was notified by Hospitalist that patient was becoming Hypotensive into the 80s and 70s on the floor. She was given 2 more liters of crystalloid and is minimally responsive. She was st arted on Meropenem and Vancomycin. Reports Allergy to PCN- this was when she was 3 years old and states she just got hives She was transferred to the ICU. It appears that she has received 5Liters of Crystalloid since admission with 280ml of urine out. Her Creatinine was eleveated on admission at 2.2. She complains at this time of total body myalgias worse in flank and back, her headache is returning and is with nausea and this was previously improved with volume. Will re-order labs at this time, evaluate fluid volume status, initiate vasopressor support. Random cortisol was 21. She hasHer HCG was negative on admission, last menstrual cycle was 3-4 weeks ago. She has history of Migraines for which she is on Verapamil and Propanolol therapy, Focal Epilepsy for which she is on Keppra, and Bi-polar mood disorder and is on [place]. [place] level slightly elevated at 1.5 on admission. IUD is in place noted on CT scan, patient reports that this is copper IUD. Allergies Allergy/AdvReac Type Severity Reaction Status Date / Time amoxicillin Allergy Unknown RASH Verified 04/07/22 10:15 Penicillins Allergy Verified 04/07/22 10:15 Home Medications Medication Instructions Recorded Confirmed Type gabapentin 800 mg tablet 800 mg PO TID #270 tabs 03/28/19 05/29/22 History levetiracetam 1,000 mg tablet 1,000 mg PO BID 90 days #180 tabs 04/07/22 05/29/22 Rx rizatriptan 10 mg tablet (Maxalt) 10 mg PO .COMPLEX PRN migraine 04/07/22 05/29/22 Rx headache #27 tabs verapamil 180 mg tablet,extended 180 mg PO DAILY 90 days #90 tabs 04/07/22 05/29/22 Rx release escitalopram oxalate 10 mg tablet 10 mg PO QAM 05/29/22 05/29/22 History lithium carbonate 600 mg capsule 600 mg PO AMHS 05/29/22 05/29/22 History propranolol 20 mg tablet 20 mg PO BID PRN Anxiety 05/29/22 05/29/22 History Patient History Medical History Anxiety Bipolar affective disorder, current episode manic Common migraine without aura Epilepsy Focal epilepsy with impairment of consciousness Suicidal ideation Surgical History History of cholecystectomy History of oral surgery Family History Grandmother (Maternal) Diabetes Thyroid disease Social History Smoking Status: Never smoker Tobacco Type: E-cigarettes / Vaping Second Hand Exposure: No; Do You Dip or Chew Tobacco: No; Tobacco Cessation Education Requested by Patient: No Hx Alcohol Use: No Hx Substance Use: No Preferred Language: Mohawk Communication Ability: Effective 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 Beliefs That Will Affect Care: None Current Living Situation: Alone Other Information That Helps Us Care for You: No Feels Safe at Home: Yes Safety Concerns: Feels Safe At This Time Assistive Devices: None Review of Systems Review of Systems: REVIEW OF SYSTEMS: Constitutional: (+) fever, sweats or chills Eyes: No diplopia, no worsening or blurred vision ENT: (+) headache normal hearing, no trouble swallowing Respiratory: No cough, sputum, dyspnea at rest or on exertion Cardiovascular: No chest pain, tightness or palpitations Abdomen: (+) pain, nausea, vomiting, diarrhea, NO constipation Musculoskeletal: (+) myalgias, No joint pain, calf pain, swelling Neurologic: No weakness, numbness/tingling, or balance problems Psychiatric: (+) bipolar Skin: No rash or itch Physical Exam Physical Exam: PHYSICAL EXAM: General: awake, alert, and appropriate Head: Normocephalic, atraumatic, no meningismus signs ENT: PERRLA, EOMI, no pharyngeal exudate, mucous membranes moist Neuro: AAO x 3, speech clear and appropriate, strength intact bilaterally 5/5, sensation intact and equal all extremities and dermatomes, no pronator drift Chest: equal rise and fall of the chest, no accessory muscle use, no heaves or thrills, decreased in bases, on room air, Cardiac: Regular rate and rhythm, telemetry reviewed- NSR, skin warm dry, cap refill <3 seconds, peripheral pulses +2 no JVD, no murmur, no edema GI: NABS x 4 quadrants, soft, nontender to palpation, no rebound, guarding or tenderness : [place] to gravity with dark lisa urine Extremities: Normal inspection, no peripheral edema or erythema, calfs nontender to palpation Psych: Normal mood and affect Skin: no rash or erythema Results & Data Results & Data ([facility]) Vital Signs (Past 12 Hours) Vital Signs Temp Pulse Pulse Resp BP BP Pulse Ox 05/30/22 01:46 37.5 C 88 18 64/38 L 77/49 L 95 05/29/22 23:52 38.9 C H 87 18 88/54 L 95 05/29/22 22:49 37.7 C H 82 18 81/49 L 94 05/29/22 20:34 39.2 C H 91 H 18 83/49 L 93 05/29/22 19:11 39.2 C H 93 H 19 87/56 L 95 05/29/22 17:48 90 05/29/22 17:15 37.0 C 05/29/22 17:02 05/29/22 17:02 37 C 92 H 20 93/62 L 97 05/29/22 16:13 91 H 107/63 95 05/29/22 15:05 91 H 99/63 L 94 05/29/22 15:00 92 H 16 99/63 L 95 05/29/22 14:39 90 98 Pulse Ox O2 Del Method O2 Del Method 05/30/22 01:46 Room Air 05/29/22 23:52 Room Air 05/29/22 22:49 Room Air 05/29/22 20:34 Room Air 05/29/22 19:11 Room Air 05/29/22 17:48 05/29/22 17:15 05/29/22 17:02 97 Room Air 05/29/22 17:02 Room Air 05/29/22 16:13 Room Air 05/29/22 15:05 Room Air 05/29/22 15:00 Room Air 05/29/22 14:39 Room Air Laboratory Results Abnormal lab results 05/29/22 05/29/22 05/29/22 Range/Units 13:43 13:43 14:04 WBC 18.88 H (4.8-10.8) K/ul Neut # (Auto) 16.75 H (1.4-6.5) K/uL Lymph # (Auto) 0.66 L (1.2-3.4) K/uL [place] # (Auto) 1.13 H (0.24-0.82) K/uL Immature Gran # (Auto) 0.19 H (0.00-0.02) K/uL APTT (21.0-31.0) Seconds Sodium 130 L (136-145) mmol/L Creatinine 2.21 H (0.6-1.2) mg/dl Glucose 164 H (70-99(Fasting)) mg/dl Lactate (0.4-2.0) mmol/L Total Bilirubin 1.1 H (0.2-1.0) mg/dl Direct Bilirubin 0.3 H (0-0.2) mg/dl AST 10 L (13-39) U/L Alkaline Phosphatase 204 H (34-104) U/L Troponin I High Sens 16.6 H (0-14) pg/ml Albumin 3.2 L (3.4-5.0) gm/dl Lipase 7 L (11-82) U/L Procalcitonin (0-0.5) ng/ml Urine Appearance Turbid A (Clear) Urine Protein 2+ H (Negative) Urine Blood Trace H (Negative) Ur Leukocyte Esterase 3+ H (Negative) Urine WBC (Auto) >30 H (0-5) /hpf U Epithel Cells (Auto) >30 H (0-5) /lpf Urine Bacteria (Auto) 4+ H (Negative) [place] (0.6-1.2) mmol/L 05/29/22 05/29/22 05/29/22 Range/Units 14:12 14:12 14:12 WBC (4.8-10.8) K/ul Neut # (Auto) (1.4-6.5) K/uL Lymph # (Auto) (1.2-3.4) K/uL [place] # (Auto) (0.24-0.82) K/uL Immature Gran # (Auto) (0.00-0.02) K/uL APTT 35.3 H (21.0-31.0) Seconds Sodium (136-145) mmol/L Creatinine (0.6-1.2) mg/dl Glucose (70-99(Fasting)) mg/dl Lactate 2.9 H* (0.4-2.0) mmol/L Total Bilirubin (0.2-1.0) mg/dl Direct Bilirubin (0-0.2) mg/dl AST (13-39) U/L Alkaline Phosphatase (34-104) U/L Troponin I High Sens (0-14) pg/ml Albumin (3.4-5.0) gm/dl Lipase (11-82) U/L Procalcitonin 12.19 H (0-0.5) ng/ml Urine Appearance (Clear) Urine Protein (Negative) Urine Blood (Negative) Ur Leukocyte Esterase (Negative) Urine WBC (Auto) (0-5) /hpf U Epithel Cells (Auto) (0-5) /lpf Urine Bacteria (Auto) (Negative) [place] (0.6-1.2) mmol/L 05/29/22 Range/Units 14:12 WBC (4.8-10.8) K/ul Neut # (Auto) (1.4-6.5) K/uL Lymph # (Auto) (1.2-3.4) K/uL [place] # (Auto) (0.24-0.82) K/uL Immature Gran # (Auto) (0.00-0.02) K/uL APTT (21.0-31.0) Seconds Sodium (136-145) mmol/L Creatinine (0.6-1.2) mg/dl Glucose (70-99(Fasting)) mg/dl Lactate (0.4-2.0) mmol/L Total Bilirubin (0.2-1.0) mg/dl Direct Bilirubin (0-0.2) mg/dl AST (13-39) U/L Alkaline Phosphatase (34-104) U/L Troponin I High Sens (0-14) pg/ml Albumin (3.4-5.0) gm/dl Lipase (11-82) U/L Procalcitonin (0-0.5) ng/ml Urine Appearance (Clear) Urine Protein (Negative) Urine Blood (Negative) Ur Leukocyte Esterase (Negative) Urine WBC (Auto) (0-5) /hpf U Epithel Cells (Auto) (0-5) /lpf Urine Bacteria (Auto) (Negative) [place] 1.5 H (0.6-1.2) mmol/L Diagnostic Findings Chest X-Ray 05/29/22 13:53 XR chest 1V portable HISTORY: 32 years-old Female Sepsis acute sepsis COMPARISON: 12/16/2007 TECHNIQUE: AP view of the chest FINDINGS: Cardiomediastinal and hilar silhouettes are within normal limits. No pneumothorax, pleural effusion, airspace consolidation or overt pulmonary edema. Bones appear grossly intact. IMPRESSION: No acute process. ACT 112: Negative or not required by law. The above report was generated using voice recognition software. It may contain grammatical, syntax or spelling errors. Electronically signed by: Salinas Armstrong M.D. 05/29/2022 2:37 PM Abdomen/Pelvis CT 05/29/22 14:[address] WITHOUT CONTRAST CT DOSE: 674.66 mGy.cm HISTORY: Acute dysuria with bilateral flank pain tiffany dysuria hypotension ro kidney stone TECHNIQUE: Multiaxial CT images of the abdomen and pelvis were performed without contrast. A dose lowering technique was utilized adhering to the principles of ALARA. COMPARISON STUDY: Pelvic ultrasound 09/28/2014 FINDINGS: Trace pleural effusions. Subsegmental bibasilar atelectasis. No pneumatosis or pneumoperitoneum. The unenhanced spleen measures within the upper limits of normal in size. Cholecystectomy. The liver, pancreas and adrenal glands are within normal limits. Right greater than left bilateral perinephric stranding and pelvocaliectasis. No jeff hydronephrosis or urolith identified. Circumferential wall thickening of the urinary bladder. IUD of the pelvis appears to be in satisfactory positioning. No adnexal mass lesions. Unremarkable aorta. No lymphadenopathy. No bowel obstruction. Mild wall thickening of the duodenum is likely secondary to the adjacent renal findings. Air-fluid levels are noted throughout the large and small bowel. Noninflamed appendix. Unremarkable soft tissues. Moderate disc space narrowing with posterior disc osteophyte complex at L5-S1. No acute fracture. IMPRESSION: 1. Right greater than left perinephric inflammatory stranding with associated pelvocaliectasis and urinary bladder wall thickening. No urolith or jeff hydronephrosis. Findings are suggestive of an ascending infection with cystitis. 2. No bowel obstruction or bowel wall thickening. 3. Trace pleural effusions. 4. Cholecystectomy. ACT 112: Negative or not required by law. The above report was generated using voice recognition software. It may contain grammatical, syntax or spelling errors. Electronically signed by: Salinas Armstrong M.D. 05/29/2022 3:10 PM Medications Administered Home Medications gabapentin 800 mg tablet 800 mg PO TID #270 tabs 03/28/19 [History Confirmed 05/29/22] levetiracetam 1,000 mg tablet 1,000 mg PO BID 90 days #180 tabs 04/07/22 [Rx Confirmed 05/29/22] rizatriptan 10 mg tablet (Maxalt) 10 mg PO .COMPLEX PRN migraine headache #27 tabs 04/07/22 [Rx Confirmed 05/29/22] verapamil 180 mg tablet,extended release 180 mg PO DAILY 90 days #90 tabs 04/07/22 [Rx Confirmed 05/29/22] escitalopram oxalate 10 mg tablet 10 mg PO QAM 05/29/22 [History Confirmed 05/29/22] lithium carbonate 600 mg capsule 600 mg PO AMHS 05/29/22 [History Confirmed 05/29/22] propranolol 20 mg tablet 20 mg PO BID PRN Anxiety 05/29/22 [History Confirmed 05/29/22] Active Medications Escitalopram Oxalate (Escitalopram Oxalate 10 Mg Tab) 10 mg PO QAM TAMIR Stop: 06/29/22 08:59 Gabapentin (Gabapentin 300 Mg Cap) 300 mg PO BID TAMIR Stop: 06/28/22 20:59 Last Admin: 05/29/22 23:05 Dose: Not Given Heparin Sodium (Porcine) (Heparin Sod 5,000 Unit/0.5 Ml Vial) 5,000 units SQ Q12 TAMIR Stop: 06/28/22 20:59 Last Admin: 05/29/22 21:25 Dose: 5,000 units Hydromorphone HCl (Hydromorphone Inj 0.5 Mg/0.5 Ml Syr) 0.5 mg IV Q4H PRN PRN Reason: Pain Stop: 06/12/22 16:09 Last Admin: 05/29/22 17:25 Dose: 0.5 mg Sodium Chloride (Nss 1000ml) 1,000 mls @ 125 mls/hr IV .Q8H TAMIR Stop: 06/28/22 15:29 Last Admin: 05/29/22 19:19 Dose: 125 mls/hr Meropenem 500 mg/ Syringe 10 mls @ 2 mls/min IV Q8H TAMIR; Protocol Stop: 06/08/22 20:59 Last Admin: 05/29/22 21:23 Dose: 2 mls/min Vancomycin HCl 500 mg/ (Dextrose) 110 mls @ 132 mls/hr IV Q12H TAMIR; Protocol Stop: 06/09/22 07:59 Acetaminophen (Ofirmev) 1,000 mg in 100 mls @ 400 mls/hr IV Q8H PRN PRN Reason: Pain or Fever Stop: 06/01/22 23:52 Norepinephrine Bitartrate (Levophed/D5w) 4 mg in 250 mls @ 16.275 mls/hr IV .[id number] TAMIR; Protocol Stop: 06/29/22 02:28 Levetiracetam (Levetiracetam 500 Mg Tab) 500 mg PO Q12H TAMIR Stop: 06/29/22 09:29 Miscellaneous (Stat Iv Infusion Titration Per Protocol) 1 each N/A NOW STA Stop: 05/30/22 02:30 Miscellaneous Information (Vancomycin Consult Active) 1 each N/A UD PRN PRN Reason: Consult Stop: 06/28/22 20:43 Ondansetron HCl (Ondansetron Inj 2 Mg/Ml 2 Ml Vial) 4 mg IV Q6H PRN PRN Reason: Nausea Stop: 06/28/22 17:01 Last Admin: 05/29/22 19:47 Dose: 4 mg Polyethylene Glycol (Polyethylene (Miralax) 17 Gm Pack) 17 gm PO DAILY PRN PRN Reason: Constipation Stop: 06/28/22 17:01 Coding Level of Care Code Critical Care 1st 30-74 mins Diagnoses Pyelonephritis N12 Sepsis A41.9; R65.20; N17.9 Acute renal failure type: unspecified Sepsis acute organ dysfunction status: with acute organ dysfunction Sepsis type: sepsis due to unspecified organism Severe sepsis acute organ dysfunction type: acute renal failure Severe sepsis shock status: without septic shock Anxiety F41.9 Mood disorder F39 Focal epilepsy with impairment of consciousness G40.109 Common migraine without aura G43.009 Septic shock A41.9; R65.21 (1) Sepsis Acute renal failure type: unspecified Sepsis acute organ dysfunction status: with acute organ dysfunction Sepsis type: sepsis due to unspecified organism Severe sepsis acute organ dysfunction type: acute renal failure Severe sepsis shock status: without septic shock Qualified Code(s): A41.9 - Sepsis, un specified organism; R65.20 - Severe sepsis without septic shock; N17.9 - Acute kidney failure, unspecified
[2022-05-30] MEDS: NOREPINEPHRINE/D5W 4 MG/250 ML PLCT IV SCH (02:47)
[2022-05-30 02:50] LABS: Hematocrit (blood only) 30.6 % (34.1-44.9); Mean Corpuscular Hemoglobin 29.1 pg (25.0-34.0); Mean Corpuscular Hgb Conc 32.7 g/dL (32.0-36.0); Mean Platelet Volume 10.3 fL (9.4-12.3); Platelet Count 223 K/uL (130-400); RDW Coefficient of Variation 14.2 % (11.5-14.5); RDW Standard Deviation 45.7 fL (36.4-46.3); Red Blood Count 3.44 M/uL (3.93-5.22); White Blood Count 20.49 K/ul (4.8-10.8)
[2022-05-30 03:14] LABS: Albumin Globulin Ratio 1.1 (0.9-2); Albumin Level 2.5 gm/dl (3.4-5.0); Bilirubin,Total 1.3 mg/dl (0.2-1.0); Calcium 6.9 mg/dl (8.5-10.1); Creatinine Clr Calc Pharmacy 40.4 ml/min; Est GFR (African American) 34.8 ml/min; Globulin 2.3 gm/dl (2.5-4.0); Magnesium 1.5 mg/dl (1.7-2.4); Potassium 3.1 mmol/L (3.5-5.1); Total Protein 4.8 gm/dl (6.0-8.3)
[2022-05-30] MEDS ORDERED: CALCIUM GLUCONATE 10% 2,000 MG in DEXTROSE 5% 50 ML IV ONE (03:19)
[2022-05-30] MEDS ORDERED: STAT IV STA (03:19)
[2022-05-30] MEDS ORDERED: POTASSIUM CHLORIDE CRTAB 20 MEQ TABCR PO STA (03:21)
[2022-05-30 03:22] LABS: C Reactive Protein 31.84 mg/dl (0-0.5)
[2022-05-30] MEDS: ACETAMINOPHEN 1,000 MG/100 ML VIAL IV PRN ×2 (03:29→12:09)
[2022-05-30] MEDS: MAGNESIUM SULFATE / D5W 1 GM/100 ML BAG IV SCH ×3 (04:09→07:42)
[2022-05-30] MEDS: MEROPENEM 500 MG in SYRINGE 0 ML IV SCH ×3 (06:06→20:14)
[2022-05-30] MEDS: SODIUM CHLORIDE 0.9% 1000ML 1,000 ML IV SCH (06:37)
[2022-05-30] MEDS ORDERED: VANCOMYCIN HCL 500 MG in DEXTROSE 5% 100 ML IV SCH (08:00)
[2022-05-30] MEDS ORDERED: VANCOMYCIN HCL 1,250 MG in SODIUM CHLORIDE 0.9% 250 ML IV SCH (08:00)
--- NOTE | 2022-05-30 08:03 | Critical Care Progress Note ---
Date of Service May 30, 2022 Assessment & Plan (1) Septic shock: (2) Sepsis: (3) Pyelonephritis: (4) Seizure: (5) Anxiety: (6) AVELINO (acute kidney injury): Plan Reason Critically Ill: 32 YOF transferred to ICU for severe sepsis secondary to pyelonephritis from UTI. She is with pelvocaliectasis which is likely related to her infection and without other evidence of obstruction or hydronephrosis. She has received approx 5 liters of Crystalloid with minimal Urine output. She will require vasopressors at this time. Antibiotic therapy has been broadened to Meropenem and Vancomycin. Neuro -Bi-Polar mood disorder, Focal Epilepsy, Migraines - lithium level elevated on arrival- hold with renal dysfunction and follow - Continue Keppra - She is mentating well at this point in time and is without meningismus signs - Will hold her prophylactic therapy of Verapamil and Propranolol in the setting of septic shock- may need abortive medication Cardiac -Shock - From pyelonephritis - resuscitated on admission - remains hypotensive +4liter fluid balance- hold on further crystalloid -Continue with vasopressor support to keep MAP greater than 65 - Random Cortisol 21 on admission - if she would need to pressors and with rising requirements would add stress dose Respiratory - No acute needs at this time Admission CXR reviewed, no acute process, is on room air GI - No acute needs HX of chronic diarrhea with gall bladder removal RENAL/LYTES -ARF, Pyelonephritis - Acute renal failure with increase in LEGAL BILLER to 2.2 from 0.8- secondary to UTI and pyelonephritis -pelvocaliectasis should improve with treating her underlying infection - follow up imaging with resolution - renal dose medications avoid nephrotoxins as able - Replete electrolytes -Complicated UTI As above ENDO - No acute needs HEME -Luekocytosis, Anemia - severe sepsis- follow CBC, Platelet counts - Anemia- normocytic likely following dilutional following 5liters of crystalloid- no evidence of bleeding on exam ID -gram-negative in the urine - Broadened out abx coverage agree with -on meropenem - Blood culture and urine culture pending - Elevated PCT and CRP is pending- follow q72 hours for response --Prophylaxis VTE: Heparin GI: None Lines: Peripheral Diet: Renal Plan: In/out: +6.7 L, urine output 185 Would recommend seeing IV fluids once the patient is able to tolerate p.o. diet Patient urine output has picked up since the morning. Creatinine is gradually improving Hypophosphatemia, hypokalemia as well as hypomagnesemia being replaced Given nasal MRSA negative will discontinue vancomycin Continue with meropenem until the sensitivities are back. Try to wean off vasopressors. I have personally spent additional 38 minutes of critical care time in the direct management of this patient. This is a life/limb threatening event. This includes time spent evaluating patient, direct bedside care, chart review, placing orders, interpretation of diagnostic studies, discussion with consultants, patient, and family members, as well as other required patient management activities. This time is exclusive of all separately billable procedures, and teaching time and separate from and in addition to any other critical care service time. Please note the above document was generated using voice recognition software. It may contain grammatical, syntax or spelling errors. Admission and Anticipated Discharge Date Admission Date: May 29, 2022 Subjective Patient seen and examined at bedside. No acute distress, no adverse events overnight. Patient was on 0.07 on Levophed at time of examination, I went down to 0.04. Her map was in the 90s. She was sleeping but answering all the questions appropriately Denied any abdominal pain, no nausea vomiting Mild headache, no blurry vision No fever or chills Review of Systems Review of Systems: All systems reviewed & are unremarkable except as noted in Subjective Physical Exam Physical Exam: Constitutional: No acute distress HEENT: EOMI, PERRLA Respiratory system: Good air entry bilaterally, no wheeze, no rhonchi, positive crackles bilateral lower lobes CVS: S1-S2 positive, no murmurs or gallops Abdomen: Soft, nondistended, positive bowel sounds x4, minimal right flank tenderness, no rebound Extremities: +2 pulses bilaterally radialis/ dorsalis pedis, no cyanosis, no edema Neuro: Awake alert oriented x3 Psych: Normal mood and affect G/U: Positive Harrington Skin: no rashes, warm and dry Lymphatic: no cervical or axillary lymphadenopathy Results & Data Results & Data ([facility]) Vital Signs (Past 12 Hours) Vital Signs Temp Pulse Pulse Pulse Resp BP BP 05/30/22 07:49 36.7 C 05/30/22 06:38 70 17 106/71 05/30/22 06:15 68 18 100/71 05/30/22 06:00 77 17 101/66 05/30/22 05:45 71 18 94/65 L 05/30/22 05:30 74 16 101/66 05/30/22 05:15 77 17 96/68 L 05/30/22 05:00 77 21 93/60 L 05/30/22 05:00 36.9 C 05/30/22 04:45 79 19 90/60 L 05/30/22 04:30 81 17 99/58 L 05/30/22 04:15 82 14 91/59 L 05/30/22 04:00 88 21 95/62 L 05/30/22 03:45 86 27 H 90/55 L 05/30/22 03:30 86 29 H 91/62 L 05/30/22 03:15 87 26 H 88/54 L 05/30/22 02:30 37.3 C 05/30/22 03:00 90 22 05/30/22 03:00 84/49 L 05/30/22 02:48 67 27 H 05/30/22 02:48 85/58 L 05/30/22 02:45 91 H 24 81/46 L 05/30/22 02:43 91 H 28 H 78/52 L 05/30/22 02:30 92 H 22 84/50 L 05/30/22 02:26 90 24 82/49 L 05/30/22 01:46 37.5 C 88 18 64/38 L 05/29/22 23:52 38.9 C H 87 18 88/54 L 05/29/22 22:49 37.7 C H 82 18 81/49 L 05/29/22 20:34 39.2 C H 91 H 18 83/49 L BP Pulse Ox O2 Del Method 05/30/22 07:49 05/30/22 06:38 94 Room Air 05/30/22 06:15 96 05/30/22 06:00 96 05/30/22 05:45 97 05/30/22 05:30 96 05/30/22 05:15 96 05/30/22 05:00 95 05/30/22 05:00 05/30/22 04:45 94 05/30/22 04:30 97 05/30/22 04:15 94 05/30/22 04:00 96 05/30/22 03:45 94 05/30/22 03:30 94 05/30/22 03:15 94 05/30/22 02:30 05/30/22 03:00 96 05/30/22 03:00 05/30/22 02:48 94 05/30/22 02:48 05/30/22 02:45 94 05/30/22 02:43 95 05/30/22 02:30 97 05/30/22 02:26 05/30/22 01:46 77/49 L 95 Room Air 05/29/22 23:52 95 Room Air 05/29/22 22:49 94 Room Air 05/29/22 20:34 93 Room Air Laboratory Results 05/30/22 02:35 05/30/22 02:35 Coding Level of Care Code Critical Care ea addt'l 30 min Diagnoses Septic shock A41.9; R65.21 Sepsis A41.9; R65.20; N17.9 Acute renal failure type: unspecified Sepsis acute organ dysfunction status: with acute organ dysfunction Sepsis type: sepsis due to unspecified organism Severe sepsis acute organ dysfunction type: acute renal failure Severe sepsis shock status: without septic shock Pyelonephritis N12 Seizure R56.9 Anxiety F41.9 AVELINO (acute kidney injury) N17.9 Time Spent (min) 38 (1) Sepsis Acute renal failure type: unspecified Sepsis acute organ dysfunction status: with acute organ dysfunction Sepsis type: sepsis due to unspecified organism Severe sepsis acute organ dysfunction type: acute renal failure Severe sepsis shock status: without septic shock Qualified Code(s): A41.9 - Sepsis, unspecified organism; R65.20 - Severe sepsis without septic shock; N17.9 - Acute kidney failure, unspecified
[2022-05-30] MEDS ORDERED: VERAPAMIL HCL 180 MG TABCR PO SCH (09:00)
[2022-05-30] MEDS: HEPARIN SOD 5,000 UNIT/0.5 ML VIAL SQ SCH ×2 (09:06→20:14)
[2022-05-30] MEDS: GABAPENTIN 300 MG CAP PO SCH ×2 (09:06→20:15)
[2022-05-30] MEDS: ESCITALOPRAM OXALATE 10 MG TAB PO SCH (09:07)
[2022-05-30] MEDS ORDERED: POTASSIUM PHOS 3 MMOL/1 ML INFUSION IV STA (09:19)
[2022-05-30] MEDS ORDERED: levETIRAcetam 500 MG TAB PO SCH (09:30)
[2022-05-30] MEDS ORDERED: POTASSIUM PHOSPHATE 15 MMOL in SODIUM CHLORIDE 0.9% 250 ML IV ONE (09:45)
[2022-05-30] MEDS ORDERED: levETIRAcetam 250 MG TAB PO ONE (10:30)
[2022-05-30] MEDS ORDERED: GABAPENTIN 300 MG CAP PO ONE (10:30)
[2022-05-30] MEDS ORDERED: RIZATRIPTAN BENZOATE 10 MG TAB PO ONE (12:29)
--- NOTE | 2022-05-30 15:41 | Hospitalist Progress Note ---
Date of Service May 30, 2022 Assessment & Plan (1) Sepsis: (2) Pyelonephritis: Plan Patient is a 32-year-old female with past medical history of bipolar disorder, anxiety disorder, focal epilepsy on Keppra, migraine disorder on verapamil presented to the ED with right-sided pyelonephritis. Septic shock secondary to complicated UTI Right-sided pyelonephritis Acute kidney injury Mild hyponatremia Reported UTI-like symptoms since past 5 days, fever and back pain for past 3 days Hypotensive on presentation; responded initially to fluids. Her lactate down trended CT abdomen pelvis shows right greater than left perinephric inflammatory stranding and urinary bladder thickening. On 05/29 overnight, patient became hypotensive again ; did not response to IV fluids. Transferred to ICU Urine culture shows gram-negative bacilli Blood culture no growth till date Plan; Currently on meropenem as per ICU. Vancomycin DC'd. Vasopressor support as per ICU IV fluids as per ICU We will follow-up on final urine culture and de-escalate antibiotic as necessary, also follow blood culture. Elevated lithium level -Serum lithium level is 1.5 on admission. 1.3 today a.m. -Obtain lithium level in AM. Resume once AVELINO is resolved. Chronic conditions; Seizure disorderadjust Keppra dosing as per GFR. Gabapentin dose adjusted to 300 twice daily Her home verapamil and propranolol are on hold. DVT SCD full code Admission and Anticipated Discharge Date Admission Date: May 29, 2022 Subjective Overnight, patient became hypotensive; did not response to IV fluid and was transferred to ICU for vasopressor support She was seen and examined in the ICU. She was sleepy; awake able by voice. Urine output had started to roller picker; Harrington was in place with concentrated urine. Review of Systems Review of Systems: All systems reviewed & are unremarkable except as noted in Subjective Physical Exam Physical Exam: Constitutional: Lethargic; awake able by voice. Respiratory: normal respiratory effort, lungs clear to auscultation, no wheeze, rales, rhonchi. Normal insp/exp effort, no accessory muscle use Cardiovascular: RRR, no murmur, no edema Vessels: no JVD or carotid bruit Chest: normal inspection of chest Abdomen: Right costophrenic angle tenderness. Musculoskeletal: no cyanosis or clubbing, extremities motor strength 5/5 Skin: no rashes, warm and dry normal turgor Neurologic: PERRL, EOMI, accommodation nl, no face palsy, no dysarthria CN's II- XI intact bilaterally and moves all extremities Psychiatric: A+Ox3, euthymic affect Lymphatic: no cervical or axillary lymphadenopathy : deferred Results & Data Results & Data ([facility]) Vital Signs (Past 12 Hours) Vital Signs Temp Pulse Pulse Resp BP BP BP 05/30/22 12:00 75 25 H 105/77 05/30/22 12:14 36.7 C 05/30/22 11:30 75 25 H 05/30/22 11:00 71 14 99/69 L 05/30/22 10:01 80 24 116/80 05/30/22 09:00 65 17 112/79 05/30/22 08:00 75 15 95/64 L 05/30/22 07:00 63 17 107/76 05/30/22 10:30 103/67 05/30/22 09:30 124/94 05/30/22 07:49 36.7 C 05/30/22 06:38 70 17 106/71 05/30/22 06:15 68 18 100/71 05/30/22 06:00 77 17 101/66 05/30/22 05:45 71 18 94/65 L 05/30/22 05:30 74 16 101/66 05/30/22 05:15 77 17 96/68 L 05/30/22 05:00 77 21 93/60 L 05/30/22 05:00 36.9 C 05/30/22 04:45 79 19 90/60 L 05/30/22 04:30 81 17 99/58 L 05/30/22 04:15 82 14 91/59 L 05/30/22 04:00 88 21 95/62 L 05/30/22 03:45 86 27 H 90/55 L Pulse Ox O2 Del Method 05/30/22 12:00 98 05/30/22 12:14 05/30/22 11:30 100 05/30/22 11:00 100 05/30/22 10:01 100 05/30/22 09:00 97 05/30/22 08:00 97 05/30/22 07:00 98 Room Air 05/30/22 10:30 05/30/22 09:30 05/30/22 07:49 05/30/22 06:38 94 Room Air 05/30/22 06:15 96 05/30/22 06:00 96 05/30/22 05:45 97 05/30/22 05:30 96 05/30/22 05:15 96 05/30/22 05:00 95 05/30/22 05:00 05/30/22 04:45 94 05/30/22 04:30 97 05/30/22 04:15 94 05/30/22 04:00 96 05/30/22 03:45 94 Laboratory Results Laboratory Results WBC 20.49 K/ul (4.8-10.8) H 05/30/22 02:35 RBC 3.44 M/uL (3.93-5.22) L 05/30/22 02:35 Hgb 10.0 g/dl (12.0-16.0) L 05/30/22 02:35 Hct 30.6 % (34.1-44.9) L 05/30/22 02:35 MCV 89.0 fL (80.0-100.0) 05/30/22 02:35 MCH 29.1 pg (25.0-34.0) 05/30/22 02:35 MCHC 32.7 g/dL (32.0-36.0) 05/30/22 02:35 RDW Std Deviation 45.7 fL (36.4-46.3) 05/30/22 02:35 RDW Coeff of Charlie 14.2 % (11.5-14.5) 05/30/22 02:35 Plt Count 223 K/uL (130-400) 05/30/22 02:35 MPV 10.3 fL (9.4-12.3) 05/30/22 02:35 Immature Gran % (Auto) 1.0 % 05/29/22 13:43 Neut % (Auto) 88.7 % 05/29/22 13:43 Lymph % (Auto) 3.5 % 05/29/22 13:43 Dewey % (Auto) 6.0 % 05/29/22 13:43 Eos % (Auto) 0.4 % 05/29/22 13:43 Baso % (Auto) 0.4 % 05/29/22 13:43 Neut # (Auto) 16.75 K/uL (1.4-6.5) H 05/29/22 13:43 Lymph # (Auto) 0.66 K/uL (1.2-3.4) L 05/29/22 13:43 Dewey # (Auto) 1.13 K/uL (0.24-0.82) H 05/29/22 13:43 Eos # (Auto) 0.08 K/uL (0-0.50) 05/29/22 13:43 Baso # (Auto) 0.07 K/uL (0-0.2) 05/29/22 13:43 Immature Gran # (Auto) 0.19 K/uL (0.00-0.02) H 05/29/22 13:43 Dohle Bodies 1+ 05/29/22 13:43 PT 11.9 Seconds (9.0-12.0) 05/29/22 14:12 INR 1.1 (0.9-1.1) 05/29/22 14:12 APTT 35.3 Seconds (21.0-31.0) H 05/29/22 14:12 PTT Ratio 1.3 05/29/22 14:12 Sodium 133 mmol/L (136-145) L 05/30/22 02:35 Potassium 3.1 mmol/L (3.5-5.1) L 05/30/22 02:35 Chloride 107 mmol/L (98-107) 05/30/22 02:35 Carbon Dioxide 20 mmol/L (21-32) L 05/30/22 02:35 Anion Gap 6 (3-11) 05/30/22 02:35 BUN 21 mg/dl (6-23) 05/30/22 02:35 Creatinine 2.11 mg/dl (0.6-1.2) H 05/30/22 02:35 Est Cr Clr Drug Dosing 40.4 ml/min 05/30/22 02:35 Est GFR ( Amer) 34.8 ml/min 05/30/22 02:35 Est GFR (Non-Af Amer) 30.0 ml/min 05/30/22 02:35 BUN/Creatinine Ratio 10.0 (10-20) 05/30/22 02:35 Glucose 89 mg/dl (70-99(Fasting)) 05/30/22 02:35 Lactate 1.9 mmol/L (0.4-2.0) 05/30/22 02:35 Calcium 6.9 mg/dl (8.5-10.1) L 05/30/22 02:35 Phosphorus 2.0 mg/dl (2.5-4.9) L 05/30/22 02:35 Magnesium 1.5 mg/dl (1.7-2.4) L 05/30/22 02:35 Total Bilirubin 1.3 mg/dl (0.2-1.0) H 05/30/22 02:35 Direct Bilirubin 0.3 mg/dl (0-0.2) H 05/29/22 13:43 AST 10 U/L (13-39) L 05/30/22 02:35 ALT 8 U/L (7-52) 05/30/22 02:35 Alkaline Phosphatase 76 U/L (34-104) 05/30/22 02:35 Troponin I High Sens 10.5 pg/ml (0-14) D 05/29/22 18:45 C-Reactive Protein 31.84 mg/dl (0-0.5) H 05/30/22 02:35 Total Protein 4.8 gm/dl (6.0-8.3) L D 05/30/22 02:35 Albumin 2.5 gm/dl (3.4-5.0) L 05/30/22 02:35 Globulin 2.3 gm/dl (2.5-4.0) L 05/30/22 02:35 Albumin/Globulin Ratio 1.1 (0.9-2) 05/30/22 02:35 Lipase 7 U/L (11-82) L 05/29/22 13:43 Procalcitonin 12.19 ng/ml (0-0.5) H 05/29/22 14:12 Random Cortisol 21.47 mcg/dl 05/29/22 18:50 Urine Color Yellow 05/29/22 14:04 Urine Appearance Turbid (Clear) A 05/29/22 14:04 Urine pH 5.5 (4.5-7.5) 05/29/22 14:04 Ur Specific [place] 1.010 (1.000-1.030) 05/29/22 14:04 Urine Protein 2+ (Negative) H 05/29/22 14:04 Urine Glucose (UA) Negative (Negative) 05/29/22 14:04 Urine Ketones Negative (Negative) 05/29/22 14:04 Urine Blood Trace (Negative) H 05/29/22 14:04 Urine Nitrite Negative (Negative) 05/29/22 14:04 Urine Bilirubin Negative (Negative) 05/29/22 14:04 Urine Urobilinogen Negative (Negative) 05/29/22 14:04 Ur Leukocyte Esterase 3+ (Negative) H 05/29/22 14:04 Urine WBC (Auto) >30 /hpf (0-5) H 05/29/22 14:04 Urine RBC (Auto) 0-4 /hpf (0-4) 05/29/22 14:04 U Hyaline Cast (Auto) 1-5 /lpf (0-5) 05/29/22 14:04 U Epithel Cells (Auto) >30 /lpf (0-5) H 05/29/22 14:04 Urine Bacteria (Auto) 4+ (Negative) H 05/29/22 14:04 POC Ur Test NEG (NEG) 05/29/22 14:04 [place] 1.3 mmol/L (0.6-1.2) H 05/30/22 02:35 SARS-CoV-2, RNA, NAAT NEGATIVE (NEGATIVE) 05/29/22 14:32 Impressions Chest X-Ray 05/29/22 13:53 XR chest 1V portable HISTORY: 32 years-old Female Sepsis acute sepsis COMPARISON: 12/16/2007 TECHNIQUE: AP view of the chest FINDINGS: Cardiomediastinal and hilar silhouettes are within normal limits. No pneumothorax, pleural effusion, airspace consolidation or overt pulmonary edema. Bones appear grossly intact. IMPRESSION: No acute process. ACT 112: Negative or not required by law. The above report was generated using voice recognition software. It may contain grammatical, syntax or spelling errors. Electronically signed by: Salinas Armstrong M.D. 05/29/2022 2:37 PM Abdomen/Pelvis CT 05/29/22 14:[address] WITHOUT CONTRAST CT DOSE: 674.66 mGy.cm HISTORY: Acute dysuria with bilateral flank pain avelino dysuria hypotension ro kidney stone TECHNIQUE: Multiaxial CT images of the abdomen and pelvis were performed without contrast. A dose lowering technique was utilized adhering to the principles of ALARA. COMPARISON STUDY: Pelvic ultrasound 09/28/2014 FINDINGS: Trace pleural effusions. Subsegmental bibasilar atelectasis. No pneumatosis or pneumoperitoneum. The unenhanced spleen measures within the upper limits of normal in size. Cholecystectomy. The liver, pancreas and adrenal glands are within normal limits. Right greater than left bilateral perinephric stranding and pelvocaliectasis. No jeff hydronephrosis or urolith identified. Circumferential wall thickening of the urinary bladder. IUD of the pelvis appears to be in satisfactory positioning. No adnexal mass lesions. Unremarkable aorta. No lymphadenopathy. No bowel obstruction. Mild wall thickening of the duodenum is likely secondary to the adjacent renal findings. Air-fluid levels are noted throughout the large and small bowel. Noninflamed appendix. Unremarkable soft tissues. Moderate disc space narrowing with posterior disc osteophyte complex at L5-S1. No acute fracture. IMPRESSION: 1. Right greater than left perinephric inflammatory stranding with associated pelvocaliectasis and urinary bladder wall thickening. No urolith or jeff hydronephrosis. Findings are suggestive of an ascending infection with cystitis. 2. No bowel obstruction or bowel wall thickening. 3. Trace pleural effusions. 4. Cholecystectomy. ACT 112: Negative or not required by law. The above report was generated using voice recognition software. It may contain grammatical, syntax or spelling errors. Electronically signed by: Salinas Armstrong M.D. 05/29/2022 3:10 PM (1) Sepsis Acute renal failure type: unspecified Sepsis acute organ dysfunction status: with acute organ dysfunction Sepsis type: sepsis due to unspecified organism Severe sepsis acute organ dysfunction type: acute renal failure Severe sepsis shock status: without septic shock Qualified Code(s): A41.9 - Sepsis, unspecified organism; R65.20 - Severe sepsis without septic shock; N17.9 - Acute kidney failure, unspecified
[2022-05-30] MEDS ORDERED: RIZATRIPTAN BENZOATE 10 MG TAB PO STA (17:59)
[2022-05-30 18:15] LABS: BUN Creatinine Ratio 10.7 (10-20); Calcium 8.1 mg/dl (8.5-10.1); Est GFR (African American) 32.3 ml/min; Est GFR (Non-African American) 27.9 ml/min; Magnesium 2.6 mg/dl (1.7-2.4); Phosphorus 2.5 mg/dl (2.5-4.9); Potassium 3.8 mmol/L (3.5-5.1)
[2022-05-30] MEDS ORDERED: KETOROLAC TROMETHAMINE 15 MG/ML VIAL IV ONE (19:59)
[2022-05-30] MEDS: levETIRAcetam 250 MG TAB PO SCH (20:16)
[2022-05-31 04:42] LABS: Hematocrit (blood only) 31.1 % (34.1-44.9); Hemoglobin 10.8 g/dl (12.0-16.0); Mean Corpuscular Hemoglobin 29.6 pg (25.0-34.0); Mean Corpuscular Hgb Conc 34.7 g/dL (32.0-36.0); Mean Corpuscular Volume 85.2 fL (80.0-100.0); Mean Platelet Volume 10.4 fL (9.4-12.3); Platelet Count 270 K/uL (130-400); RDW Coefficient of Variation 14.4 % (11.5-14.5); RDW Standard Deviation 44.5 fL (36.4-46.3); Red Blood Count 3.65 M/uL (3.93-5.22); White Blood Count 19.77 K/ul (4.8-10.8)
[2022-05-31] MEDS: MEROPENEM 500 MG in SYRINGE 0 ML IV SCH (04:50)
[2022-05-31 05:39] LABS: Albumin Globulin Ratio 0.9 (0.9-2); Albumin Level 2.4 gm/dl (3.4-5.0); Bilirubin,Total 0.9 mg/dl (0.2-1.0); Calcium 7.7 mg/dl (8.5-10.1); Creatinine Clr Calc Pharmacy 41.8 ml/min; Est GFR (African American) 35.2 ml/min; Est GFR (Non-African American) 30.3 ml/min; Globulin 2.7 gm/dl (2.5-4.0); Potassium 3.2 mmol/L (3.5-5.1); Total Protein 5.1 gm/dl (6.0-8.3)
[2022-05-31 05:53] LABS: Basophils # (auto) 0.07 K/uL (0-0.2); Basophils % (auto) 0.4 %; Echinocytes 2+; Lymphocytes # (auto) 1.01 K/uL (1.2-3.4); Lymphocytes % (auto) 5.1 %; Monocytes # (auto) 1.58 K/uL (0.24-0.82); Neutrophils # (auto) 16.71 K/uL (1.4-6.5); Neutrophils % (auto) 84.5 %
[2022-05-31] MEDS ORDERED: POTASSIUM CHLORIDE CRTAB 20 MEQ TABCR PO STA ×2 (08:10→08:28)
[2022-05-31] MEDS: levETIRAcetam 250 MG TAB PO SCH ×2 (08:54→19:28)
[2022-05-31] MEDS: GABAPENTIN 300 MG CAP PO SCH ×2 (08:54→19:27)
[2022-05-31] MEDS: HEPARIN SOD 5,000 UNIT/0.5 ML VIAL SQ SCH ×2 (08:57→19:27)
--- NOTE | 2022-05-31 09:16 | Critical Care Progress Note ---
Date of Service May 31, 2022 Assessment & Plan (1) Septic shock: (2) Sepsis: (3) Pyelonephritis: (4) Seizure: (5) Anxiety: (6) AVELINO (acute kidney injury): Plan Reason Critically Ill: 32 YOF transferred to ICU for severe sepsis secondary to pyelonephritis from UTI. She is with pelvocaliectasis which is likely related to her infection and without other evidence of obstruction or hydronephrosis. She has received approx 5 liters of Crystalloid with minimal urine output. She will require vasopressors at this time. Antibiotic therapy has been broadened to Meropenem and Vancomycin. Neuro -Bipolar mood disorder, focal epilepsy, migraines - lithium level elevated on arrival- hold with renal dysfunction and follow- 1.1 as of today - Continue Keppra and gabapentin- may increase dose given renal function improv ing - She is mentating well at this point in time and is without meningismus signs- will encourage movement, OOB - Will hold her prophylactic therapy of Verapamil and Propranolol in the setting of septic shock- may need abortive medication Cardiac -Shock - From pyelonephritis - resuscitated on admission - improving BP off pressor support but still soft -Ordered fluid repletion, will reinitiate Levophed if no improvement in BP with fluids - Random Cortisol 21 on admission - if she would need to pressors and with rising requirements would add stress dose Respiratory - No acute needs at this time Admission CXR reviewed, no acute process, is on room air GI - No acute needs HX of chronic diarrhea with gallbladder removal RENAL/LYTES -ARF, Pyelonephritis - Acute renal failure- secondary to UTI and pyelonephritis -pelvocaliectasis should improve with treating her underlying infection - follow up imaging with resolution - renal dose medications avoid nephrotoxins as able - Replete electrolytes - Cr improving from 2.2 to 2.0 today -Complicated UTI As above 3L intake today, 4.7L output Maintain Harrington today ENDO - No acute needs HEME -Leukocytosis, Anemia - severe sepsis- follow CBC - Anemia- normocytic likely following dilutional following 5liters of crystalloid- no evidence of bleeding on exam ID -E. coli in the urine - Blood culture and urine culture sensitivities reviewed- discontinued meropenem, initiated ceftriaxone 05/31 - Repeat BCx has been negative - Follow PCT/CRP q72 hours for response --Prophylaxis VTE: Heparin GI: None Lines: Peripheral Diet: Renal Dispo: ICU until BP stable without pressor support Admission and Anticipated Discharge Date Admission Date: May 29, 2022 Supervising Physician Co-Signing Physician Notes Dr. Eng was the resident-physician during care of patient. I separately evaluated patient for méndez portions of the history and the exam. I was present during the critical portion of medical decision making, and I discussed the case with the resident. I generally agree with the findings and plan except for any additions/exceptions noted. Patient seen and examined at bedside. No acute distress, no adverse overnight. Her headache is much better controlled compared to yesterday. She did get a dose of Toradol overnight. She is making good amount of urine. Abdominal pain has significantly improved. Denies any nausea vomiting She did have her breakfast today. Pressure at the time of examination was systolic in the low 90s Constitutional: No acute distress HEENT: EOMI, PERRLA Respiratory system: Good air entry bilaterally, no wheeze, no rhonchi, positive crackles bilateral lower lobes CVS: S1-S2 positive, no murmurs or gallops Abdomen: Soft, nondistended, positive bowel sounds x4, minimal right flank tenderness, no rebound Extremities: +2 pulses bilaterally radialis/ dorsalis pedis, no cyanosis, no edema Neuro: Awake alert oriented x3 Psych: Normal mood and affect G/U: Positive Harrington --Prophylaxis VTE: Heparin GI: None Lines: Peripheral Diet: Renal Plan: In/out: -1.2 L, urine output [id number] Patient got 500 bolus early in the morning, will give another 5. mL bolus at t he blood pressure is on the softer side If the blood pressure still stays soft then we will restart the Levophed. Urine is growing E. coli which is pansensitive. Meropenem will be changed to Rocephin Out of the bed to chair Please note the above document was generated using voice recognition software. It may contain grammatical, syntax or spelling errors.Any formal questions or co ncerns about the content, text or information contained within the body of this dictation should be directly addressed to the provider for clarification. Subjective Pt's BP has remained soft in high 80s/90s over 50s overnight. Has been off Levophed as of day prior. Pt was tired on evaluation this morning. No acute events overnight. She denied any acute complaints. Review of Systems Review of Systems: Per subjective Physical Exam Physical Exam: General: tired-appearing Constitutional: No acute distress : Harrington in place Neuro: awake, lethargic Extremities: normal to inspection without edema or erythema Rest of exam per Dr. Alvarez's attestation Skin: no rashes, warm and dry Lymphatic: no cervical or axillary lymphadenopathy Results & Data Results & Data ([facility]) Vital Signs (Past 12 Hours) Vital Signs Temp Pulse Resp BP Pulse Ox 05/31/22 08:00 81 05/31/22 08:01 36.8 C 05/31/22 06:00 79 16 94 05/31/22 06:00 89/55 L 05/31/22 05:00 79 22 98 05/31/22 05:00 89/54 L 05/31/22 04:00 90 29 H 93 05/31/22 04:00 98/54 L 05/31/22 03:00 93 H 27 H 92 05/31/22 03:00 92/53 L 05/31/22 02:00 98 H 32 H 92 05/31/22 02:00 92/58 L 05/31/22 01:00 95 H 42 H 94 05/31/22 01:00 107/77 05/31/22 00:00 94 H 31 H 95 05/30/22 23:00 94 H 10 L 96 05/30/22 23:00 91/54 L 05/31/22 03:00 37.6 C H 05/31/22 00:00 92 H 05/30/22 23:00 37.5 C 05/30/22 22:30 88 23 93 05/30/22 22:00 94 H 21 93 05/30/22 22:00 94/59 L 05/30/22 21:30 94 H 23 93 Laboratory Results 05/31/22 04:18 05/31/22 04:18 Resident Activity Tracking Resident Involvement: Resident Care Provided Care Provided: Adult Hospital Medicine (1) Sepsis Acute renal failure type: unspecified Sepsis acute organ dysfunction status: with acute organ dysfunction Sepsis type: sepsis due to unspecified organism Severe sepsis acute organ dysfunction type: acute renal failure Severe sepsis shock status: without septic shock Qualified Code(s): A41.9 - Sepsis, unspecified organism; R65.20 - Severe sepsis without septic shock; N17.9 - Acute kidney failure, unspecified
[2022-05-31] MEDS: ESCITALOPRAM OXALATE 10 MG TAB PO SCH (09:28)
[2022-05-31] MEDS: cefTRIAXone SODIUM 2,000 MG in DEXTROSE 5% 50 ML IV SCH (09:28)
[2022-05-31 09:29] LABS: Magnesium 2.4 mg/dl (1.7-2.4); Phosphorus 2.7 mg/dl (2.5-4.9)
[2022-05-31] MEDS ORDERED: NORMOSOL-R 500 ML IV ONE ×2 (09:30→10:20)
--- NOTE | 2022-05-31 11:38 | Billing Data ---
Date of Service May 31, 2022 Coding Level of Care Code 03976 Subseq Hosp Care Lvl 3
--- NOTE | 2022-05-31 16:30 | Hospitalist Progress Note ---
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 Septic shock secondary to complicated UTI Right-sided pyelonephritis Reported UTI-like symptoms since past 5 days, fever and back pain for past 3 days Met sepsis criteria with leukocytosis, tachycardia, febrile +positive urine cx Hypotensive on presentation; responded initially to fluids. Her lactate down trended CT abdomen pelvis shows right greater than left perinephric inflammatory stranding and urinary bladder thickening. WBC peaked to 20K, WBC today 19.7K On 05/29 overnight, patient became hypotensive again ; did not response to IV fluids. Transferred to ICU She was placed on Pressor- Levophed Urine culture shows gram-negative bacilli - Ecoli Blood culture no growth till date meropenem and Vancomycin discontinued Currently on IV ceftriaxone BP has been borderline off pressors today- continue monitor closely Acute kidney injury Creatinine 2.2 on admissin Received IVF Avoid nephrotoxic agent Continue monitor BMP Bipolar mood disorder Continue to hold Blunt for now Mild hyponatremia Na 130 on admission Na 132 today Continue monitor Elevated lithium level Serum lithium level is 1.5 on admission. 1.1 today a.m. Resume once AVELINO is resolved. Migraine dx Continue Gabapentin, Propranolol and Verapamil Seizure disorder Keppra dosing ajusted as per GFR. Gabapentin dose adjusted to 300 twice daily Continue seizure precaution DVT on heparin subq Code status full code Admission and Anticipated Discharge Date Admission Date: May 29, 2022 Subjective Pt was seen and examined for follow up Lying in bed with no acute distress She said that she feels tired Denies any chest pain, palpitation, dizziness and SOB Review of Systems Review of Systems: All systems reviewed & are unremarkable except as noted in Subjective Physical Exam Physical Exam: General- No acute distress Head- atraumatic Eyes- PERRL, EOMI, ENT- oropharynx clear Neck- supple, no JVD Lungs- clear to auscultation Heart- regular rhythm; no murmur Abdomen- normal bowel sounds, soft, nontender Extremities- no calf tenderness Neuro- alert, oriented x 3; PERRL, EOMI; no facial palsy; no dysarthria Skin- warm & dry Results & Data Results & Data ([facility]) Vital Signs (Past 12 Hours) Vital Signs Temp Pulse Resp BP Pulse Ox 05/31/22 12:00 86 26 H 97/74 L 99 05/31/22 12:00 36.8 C 05/31/22 11:00 88 20 92/60 L 100 05/31/22 10:15 93/63 L 05/31/22 10:00 82 23 83/49 L 100 05/31/22 09:00 86 23 92/60 L 97 05/31/22 08:00 84 18 86/58 L 94 05/31/22 07:00 89 22 106/77 95 05/31/22 08:00 81 05/31/22 08:01 36.8 C 05/31/22 06:00 79 16 94 05/31/22 06:00 89/55 L 05/31/22 05:00 79 22 98 05/31/22 05:00 89/54 L (1) Sepsis Acute renal failure type: unspecified Sepsis acute organ dysfunction status: with acute organ dysfunction Sepsis type: sepsis due to unspecified organism Severe sepsis acute organ dysfunction type: acute renal failure Severe sepsis shock status: without septic shock Qualified Code(s): A41.9 - Sepsis, unspecified organism; R65.20 - Severe sepsis without septic shock; N17.9 - Acute kidney failure, unspecified
[2022-05-31] MEDS: ACETAMINOPHEN 1,000 MG/100 ML VIAL IV PRN (19:26)
[2022-06-01] MEDS: ACETAMINOPHEN 1,000 MG/100 ML VIAL IV PRN ×2 (05:23→16:54)
[2022-06-01 08:02] LABS: Basophils # (auto) 0.08 K/uL (0-0.2); Basophils % (auto) 0.6 %; Eosinophils # (auto) 0.34 K/uL (0-0.50); Eosinophils % (auto) 2.4 %; Hematocrit (blood only) 33.8 % (34.1-44.9); Hemoglobin 11.3 g/dl (12.0-16.0); Immature Granulocytes # (auto) 0.28 K/uL (0.00-0.02); Lymphocytes # (auto) 1.03 K/uL (1.2-3.4); Lymphocytes % (auto) 7.4 %; Mean Corpuscular Hemoglobin 28.5 pg (25.0-34.0); Mean Corpuscular Hgb Conc 33.4 g/dL (32.0-36.0); Mean Corpuscular Volume 85.4 fL (80.0-100.0); Monocytes # (auto) 1.41 K/uL (0.24-0.82); Monocytes % (auto) 10.2 %; Neutrophils # (auto) 10.74 K/uL (1.4-6.5); Neutrophils % (auto) 77.4 %; Platelet Count 316 K/uL (130-400); RDW Coefficient of Variation 14.2 % (11.5-14.5); RDW Standard Deviation 44.4 fL (36.4-46.3); Red Blood Count 3.96 M/uL (3.93-5.22); White Blood Count 13.88 K/ul (4.8-10.8)
[2022-06-01] MEDS: cefTRIAXone SODIUM 2,000 MG in DEXTROSE 5% 50 ML IV SCH (08:08)
[2022-06-01] MEDS: HEPARIN SOD 5,000 UNIT/0.5 ML VIAL SQ SCH ×2 (08:09→20:20)
[2022-06-01] MEDS: levETIRAcetam 250 MG TAB PO SCH (08:09)
[2022-06-01] MEDS: ESCITALOPRAM OXALATE 10 MG TAB PO SCH (08:09)
[2022-06-01] MEDS: GABAPENTIN 300 MG CAP PO SCH ×3 (08:09→20:20)
--- NOTE | 2022-06-01 08:26 | Critical Care Progress Note ---
Date of Service June 01, 2022 Assessment & Plan (1) Septic shock: (2) Sepsis: (3) Pyelonephritis: (4) Seizure: (5) Anxiety: (6) AVELINO (acute kidney injury): Plan Reason Critically Ill: 32 YOF transferred to ICU for severe sepsis secondary to pyelonephritis from UTI. She is with pelvocaliectasis which is likely related to her infection and without other evidence of obstruction or hydronephrosis. She has received approx 5 liters of Crystalloid with minimal urine output. She will require vasopressors at this time. Antibiotic therapy has been broadened to Meropenem and Vancomycin. Neuro -Bipolar mood disorder, focal epilepsy, migraines - lithium level elevated on arrival- hold with renal dysfunction and follow- 1.1 as of today - Continue Keppra and gabapentin- may increase dose as Cr continues improving, BMP pending - She is mentating well at this point in time and is without meningismus signs- will encourage movement, OOB - Held prophylactic therapy of Verapamil and Propranolol in the setting of sept ic shock- will resume as able Cardiac -Shock - Secondary to pyelonephritis, resolved - resuscitated on admission - improving BP off pressor support - Hemodynamically stable at present Respiratory - No acute needs at this time Admission CXR reviewed, no acute process, is on room air GI - No acute needs HX of chronic diarrhea with gallbladder removal RENAL/LYTES -ARF, Pyelonephritis - Acute renal failure- secondary to UTI and pyelonephritis --> improving -pelvocaliectasis should improve with treating her underlying infection - follow up imaging with resolution - renal dose medications avoid nephrotoxins as able - Replete electrolytes per protocol -Complicated UTI As above -2.9L balance today, 6.3L output Will take out Harrington catheter today ENDO - No acute needs HEME -Leukocytosis, Anemia - severe sepsis- improving, follow CBC - Anemia- 11.3 today, normocytic likely following dilutional following 5liters of crystalloid- no evidence of bleeding on exam ID -E. coli in the urine - Blood culture and urine culture sensitivities reviewed- discontinued meropenem and initiated ceftriaxone 05/31 - Continue ceftriaxone at present (day 4/7 of antibiotics) - Repeat BCx has been negative to date --Prophylaxis VTE: Heparin GI: None Lines: Peripheral Diet: Renal Dispo: Stable for downgrade from ICU Admission and Anticipated Discharge Date Admission Date: May 29, 2022 Supervising Physician Co-Signing Physician Notes Dr. Eng was the resident-physician during care of patient. I separately evaluated patient for méndez portions of the history and the exam. I was present during the critical portion of medical decision making, and I discussed the case with the resident. I generally agree with the findings and plan except for any additions/exceptions noted. Patient seen and examined at bedside. No acute distress, no adverse overnight. Has been off vasopressors for more than 48 hours now. Systolic blood pressure was 115 at the time of examination. Overall she is feeling much better. Was asking when she could be going home. Denies any nausea vomiting Fair appetite. No headache, no blurry vision, no dizziness. Constitutional: No acute distress HEENT: EOMI, PERRLA Respiratory system: Good air entry bilaterally, no wheeze, no rhonchi, mild crac kles bilateral lower lobes CVS: S1-S2 positive, no murmurs or gallops Abdomen: Soft, nondistended, positive bowel sounds x4, nontender, no rebound Extremities: +2 pulses bilaterally radialis/ dorsalis pedis, no cyanosis, no edema Neuro: Awake alert oriented x3 Psych: Normal mood and affect G/U: Positive Harrington --Prophylaxis VTE: Heparin GI: None Lines: Peripheral Diet: Renal Plan: In/out: -2.9 L, urine output 6250 Potassium being replaced Patient doing hemodynamically much better. Will DC Harrington Okay to downgrade to medical floor. Complete the course of antibiotics for total of 7-10 days Case was discussed with Dr. Gregg Please note the above document was generated using voice recognition software. It may contain grammatical, syntax or spelling errors.Any formal questions or concerns about the content, text or information contained within the body of t his dictation should be directly addressed to the provider for clarification. Subjective No acute events overnight. Pt reports feeling well, flank pain has resolved. Tolerating diet well. Denies acute complaints. Pt was pleased with news of Harrington being removed today. Review of Systems Review of Systems: Per subjective Physical Exam Physical Exam: General: well-appearing, no acute distress : Harrington in place Neuro: awake, alert Extremities: normal to inspection without edema or erythema Rest of exam per Dr. Alvarez's attestation Results & Data Results & Data ([facility]) Vital Signs (Past 12 Hours) Vital Signs Temp Pulse Resp BP Pulse Ox 06/01/22 05:00 82 28 H 99 06/01/22 05:00 105/89 06/01/22 04:30 116/86 06/01/22 04:30 80 28 H 100 06/01/22 04:00 83 24 100 06/01/22 03:00 69 19 95 06/01/22 03:00 91/61 L 06/01/22 02:30 68 18 95 06/01/22 02:30 92/65 L 06/01/22 02:00 75 17 94 06/01/22 01:30 96/58 L 06/01/22 01:30 76 23 93 06/01/22 04:00 36.8 C 06/01/22 01:00 72 18 95 06/01/22 01:00 91/57 L 06/01/22 00:00 71 20 95 06/01/22 00:00 105/64 05/31/22 23:30 104/63 05/31/22 23:30 74 19 95 05/31/22 23:00 77 20 94 05/31/22 23:00 104/63 05/31/22 22:30 95/52 L 05/31/22 22:30 85 23 94 05/31/22 22:00 73 25 H 96 05/31/22 22:00 108/57 L 05/31/22 21:30 110/62 05/31/22 21:30 82 24 95 05/31/22 21:00 87 31 H 95 05/31/22 21:00 105/63 05/31/22 20:30 88 25 H 99 05/31/22 20:30 103/67 06/01/22 00:00 36.8 C 06/01/22 00:00 79 Laboratory Results 06/01/22 07:49 06/01/22 07:52 Resident Activity Tracking Resident Involvement: Resident Care Provided Care Provided: Adult Hospital Medicine (1) Sepsis Acute renal failure type: unspecified Sepsis acute organ dysfunction status: with acute organ dysfunction Sepsis type: sepsis due to unspecified organism Severe sepsis acute organ dysfunction type: acute renal failure Severe sepsis shock status: without septic shock Qualified Code(s): A41.9 - Sepsis, unspecified organism; R65.20 - Severe sepsis without septic shock; N17.9 - Acute kidney failure, unspecified
[2022-06-01 10:23] LABS: BUN Creatinine Ratio 8.9 (10-20); Calcium 7.8 mg/dl (8.5-10.1); Creatinine Clr Calc Pharmacy 55.8 ml/min; Est GFR (African American) 49.7 ml/min; Est GFR (Non-African American) 42.9 ml/min; Magnesium 2.3 mg/dl (1.7-2.4); Phosphorus 3.1 mg/dl (2.5-4.9); Potassium 3.6 mmol/L (3.5-5.1)
[2022-06-01] MEDS ORDERED: POTASSIUM CHLORIDE CRTAB 20 MEQ TABCR PO STA ×2 (10:29→19:01)
--- NOTE | 2022-06-01 10:32 | Billing Data ---
Date of Service June 01, 2022 Coding Level of Care Code 93025 Subseq Hosp Care Lvl 3
[2022-06-01] MEDS: NOREPINEPHRINE/D5W 4 MG/250 ML PLCT IV SCH ×2 (11:49→11:50)
--- NOTE | 2022-06-01 16:32 | Hospitalist Progress Note ---
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 Septic shock secondary to complicated UTI Right-sided pyelonephritis Reported UTI-like symptoms since past 5 days, fever and back pain for past 3 days Met sepsis criteria with leukocytosis, tachycardia, febrile +positive urine cx Hypotensive on presentation; responded initially to fluids. Her lactate down trended CT abdomen pelvis shows right greater than left perinephric inflammatory stranding and urinary bladder thickening. WBC peaked to 20K, WBC continued trending down 13K today On 05/29 overnight, patient became hypotensive again ; did not response to IV fluids. Transferred to ICU She was placed on Pressor- Levophed Urine culture shows gram-negative bacilli - Ecoli Blood culture no growth till date meropenem and Vancomycin discontinued Currently on IV ceftriaxone BP has been borderline off pressors BP stable Acute kidney injury Creatinine 2.2 on admission Received IVF Creatinine 1.5 today Avoid nephrotoxic agent Continue monitor BMP Bipolar mood disorder Will resume lithium in am Check [place] level in am Mild hyponatremia Na 130 on admission Na 134 today Continue monitor Elevated lithium level Serum lithium level is 1.5 on admission. 1.1 yesterday will resume tomorrow once AVELINO is resolved. Migraine dx Continue Gabapentin, Propranolol and Verapamil Seizure disorder Keppra dosing ajusted as per GFR. Gabapentin dose adjusted to 300 twice daily Continue seizure precaution DVT on heparin subq Code status full code Admission and Anticipated Discharge Date Admission Date: May 29, 2022 Subjective Pt was seen and examined for follow up Lying in bed with no acute distress She said that she feels alot better Denies any chest pain, palpitation, dizziness and SOB Review of Systems Review of Systems: All systems reviewed & are unremarkable except as noted in Subjective Physical Exam Physical Exam: General- No acute distress Head- atraumatic Eyes- PERRL, EOMI, ENT- oropharynx clear Neck- supple, no JVD Lungs- clear to auscultation Heart- regular rhythm; no murmur Abdomen- normal bowel sounds, soft, nontender Extremities- no calf tenderness Neuro- alert, oriented x 3; PERRL, EOMI; no facial palsy; no dysarthria Skin- warm & dry Results & Data Results & Data ([facility]) Vital Signs (Past 12 Hours) Vital Signs Temp Pulse Resp BP Pulse Ox 06/01/22 16:00 37.0 C 06/01/22 16:00 78 06/01/22 15:07 115/87 06/01/22 15:07 76 24 99 06/01/22 15:00 100 06/01/22 14:00 73 22 06/01/22 13:07 128/85 06/01/22 13:07 76 20 06/01/22 13:06 69 12 06/01/22 12:00 73 17 99 06/01/22 12:00 135/88 06/01/22 12:00 36.8 C 06/01/22 11:00 72 22 96 06/01/22 10:00 64 15 96 06/01/22 09:30 109/66 06/01/22 09:30 69 18 96 06/01/22 09:00 70 21 97 06/01/22 08:30 73 20 97 06/01/22 08:30 108/71 06/01/22 08:14 117/82 06/01/22 08:14 73 23 97 06/01/22 08:00 72 22 95 06/01/22 08:00 102/72 06/01/22 07:30 118/80 06/01/22 07:30 80 18 95 06/01/22 07:00 78 24 96 06/01/22 06:00 93 H 22 97 06/01/22 06:00 124/95 06/01/22 05:30 128/89 06/01/22 05:30 91 H 28 H 100 06/01/22 08:00 37.0 C 06/01/22 08:00 68 06/01/22 05:00 82 28 H 99 06/01/22 05:00 105/89 06/01/22 04:30 116/86 06/01/22 04:30 80 28 H 100 (1) Sepsis Acute renal failure type: unspecified Sepsis acute organ dysfunction status: with acute organ dysfunction Sepsis type: sepsis due to unspecified organism Severe sepsis acute organ dysfunction type: acute renal failure Severe sepsis shock status: without septic shock Qualified Code(s): A41.9 - Sepsis, unspecified organism; R65.20 - Severe sepsis without septic shock; N17.9 - Acute kidney failure, unspecified
[2022-06-01] MEDS ORDERED: ICU ELECTROLYTE REPLACEMENT PROTOCOL SCH (18:00)
[2022-06-01] MEDS: ONDANSETRON INJ 2 MG/ML 2 ML VIAL IV PRN (18:09)
[2022-06-01] MEDS: levETIRAcetam 500 MG TAB PO SCH (20:19)
[2022-06-02] MEDS: ONDANSETRON INJ 2 MG/ML 2 ML VIAL IV PRN (01:18)
[2022-06-02] MEDS ORDERED: guaiFENesin SUGAR FREE 200 MG/10 ML UDC PO PRN (01:32)
[2022-06-02 05:20] LABS: Hematocrit (blood only) 35.8 % (34.1-44.9); Hemoglobin 11.9 g/dl (12.0-16.0); Mean Corpuscular Hemoglobin 28.3 pg (25.0-34.0); Mean Corpuscular Hgb Conc 33.2 g/dL (32.0-36.0); Mean Platelet Volume 9.9 fL (9.4-12.3); Platelet Count 351 K/uL (130-400); RDW Coefficient of Variation 14.2 % (11.5-14.5); Red Blood Count 4.21 M/uL (3.93-5.22)
[2022-06-02 05:41] LABS: BUN Creatinine Ratio 7.1 (10-20); Calcium 8.4 mg/dl (8.5-10.1); Creatinine Clr Calc Pharmacy 69.5 ml/min; Est GFR (African American) 64.8 ml/min; Est GFR (Non-African American) 55.9 ml/min; Magnesium 1.8 mg/dl (1.7-2.4); Potassium 3.8 mmol/L (3.5-5.1)
[2022-06-02 06:25] LABS: Basophils # (auto) 0.11 K/uL (0-0.2); Echinocytes 1+; Eosinophils # (auto) 0.39 K/uL (0-0.50); Eosinophils % (auto) 3.6 %; Immature Granulocytes # (auto) 0.41 K/uL (0.00-0.02); Immature Granulocytes % (auto) 3.8 %; Lymphocytes # (auto) 1.77 K/uL (1.2-3.4); Lymphocytes % (auto) 16.5 %; Monocytes # (auto) 1.25 K/uL (0.24-0.82); Monocytes % (auto) 11.7 %; Neutrophils # (auto) 6.77 K/uL (1.4-6.5); Neutrophils % (auto) 63.4 %
[2022-06-02] MEDS: cefTRIAXone SODIUM 2,000 MG in DEXTROSE 5% 50 ML IV SCH (08:06)
[2022-06-02] MEDS: levETIRAcetam 500 MG TAB PO SCH ×2 (08:07→21:35)
[2022-06-02] MEDS: GABAPENTIN 300 MG CAP PO SCH ×3 (08:07→21:35)
[2022-06-02] MEDS: ESCITALOPRAM OXALATE 10 MG TAB PO SCH (08:07)
[2022-06-02] MEDS: HEPARIN SOD 5,000 UNIT/0.5 ML VIAL SQ SCH ×2 (08:08→21:34)
[2022-06-02] MEDS: ACETAMINOPHEN 325 MG TAB PO PRN ×2 (11:33→22:24)
[2022-06-02] MEDS: LITHIUM CARBONATE 300 MG TAB PO SCH ×2 (11:34→21:35)
--- NOTE | 2022-06-02 14:55 | Hospitalist Progress Note ---
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 Septic shock secondary to complicated UTI Right-sided pyelonephritis Reported UTI-like symptoms since past 5 days, fever and back pain for past 3 days Met sepsis criteria with leukocytosis, tachycardia, febrile +positive urine cx Hypotensive on presentation; responded initially to fluids. Her lactate down trended CT abdomen pelvis shows right greater than left perinephric inflammatory stranding and urinary bladder thickening. WBC peaked to 20K, WBC continued trending down 13K today On 05/29 overnight, patient became hypotensive again ; did not response to IV fluids. Transferred to ICU She was placed on Pressor- Levophed Pressor was discontinued and BP has been stable Urine culture shows gram-negative bacilli - Ecoli Blood culture no growth till date meropenem and Vancomycin discontinued Currently on IV ceftriaxone, will plan to transition to PO on discharge Clinically stable Acute kidney injury Creatinine 2.2 on admission Received IVF Creatinine 1.2 today Avoid nephrotoxic agent Continue monitor BMP Bipolar mood disorder [place] level 0.5 [place] resumed Mild hyponatremia Na 130 on admission Na 136 today Continue monitor Elevated lithium level Serum lithium level is 1.5 on admission. 0.5 today [place] resumed today Migraine dx Continue Gabapentin, Propranolol and Verapamil Seizure disorder Continue Keppra 1g BID Gabapentin dose adjusted to 600 twice daily, will change to regular dose on discharge Continue seizure precaution DVT on heparin subq Code status full code Disposition Plan to discharge home tomorrow Admission and Anticipated Discharge Date Admission Date: May 29, 2022 Subjective Pt was seen and examined for follow up Lying in bed with no acute distress she said that she had a bad night because she woke up screaming She said that she does not have much energy today She said that her headache is mild She said that she has a dry cough She would like to stay for tonight then discharge tomorrow Denies any chest pain, palpitation, dizziness and SOB Review of Systems Review of Systems: All systems reviewed & are unremarkable except as noted in Subjective Physical Exam Physical Exam: General- No acute distress Head- atraumatic Eyes- PERRL, EOMI, ENT- oropharynx clear Neck- supple, no JVD Lungs- clear to auscultation Heart- regular rhythm; no murmur Abdomen- normal bowel sounds, soft, nontender Extremities- no calf tenderness Neuro- alert, oriented x 3; PERRL, EOMI; no facial palsy; no dysarthria Skin- warm & dry Results & Data Results & Data ([facility]) Vital Signs (Past 12 Hours) Vital Signs Temp Pulse Resp BP Pulse Ox O2 Del Method 06/02/22 12:00 36.8 C 72 18 124/96 96 Room Air 06/02/22 08:00 36.8 C 74 18 124/90 96 Room Air 06/02/22 09:23 Room Air 06/02/22 03:53 36.5 C 87 15 130/85 94 Room Air (1) Sepsis Acute renal failure type: unspecified Sepsis acute organ dysfunction status: with acute organ dysfunction Sepsis type: sepsis due to unspecified organism Severe sepsis acute organ dysfunction type: acute renal failure Severe sepsis shock status: without septic shock Qualified Code(s): A41.9 - Sepsis, unspecified organism; R65.20 - Severe sepsis without septic shock; N17.9 - Acute kidney failure, unspecified
[2022-06-02] MEDS: BENZONATATE 100 MG CAPSULE PO PRN ×2 (16:23→22:24)
[2022-06-03] MEDS: ONDANSETRON INJ 2 MG/ML 2 ML VIAL IV PRN ×2 (06:54→08:17)
[2022-06-03 07:29] LABS: Hematocrit (blood only) 36.4 % (34.1-44.9); Hemoglobin 12.1 g/dl (12.0-16.0); Mean Corpuscular Hemoglobin 28.8 pg (25.0-34.0); Mean Corpuscular Hgb Conc 33.2 g/dL (32.0-36.0); Mean Corpuscular Volume 86.7 fL (80.0-100.0); Mean Platelet Volume 9.7 fL (9.4-12.3); Platelet Count 418 K/uL (130-400); RDW Coefficient of Variation 14.6 % (11.5-14.5); RDW Standard Deviation 46.7 fL (36.4-46.3); White Blood Count 10.26 K/ul (4.8-10.8)
[2022-06-03 07:47] LABS: BUN Creatinine Ratio 4.8 (10-20); Calcium 8.1 mg/dl (8.5-10.1); Creatinine Clr Calc Pharmacy 84.2 ml/min; Est GFR (African American) 81.8 ml/min; Est GFR (Non-African American) 70.5 ml/min; Magnesium 1.7 mg/dl (1.7-2.4); Phosphorus 3.8 mg/dl (2.5-4.9); Potassium 3.4 mmol/L (3.5-5.1)
[2022-06-03] MEDS: ACETAMINOPHEN 325 MG TAB PO PRN (07:58)
[2022-06-03] MEDS: BENZONATATE 100 MG CAPSULE PO PRN (07:58)
[2022-06-03] MEDS: GABAPENTIN 300 MG CAP PO SCH (07:59)
[2022-06-03] MEDS: HEPARIN SOD 5,000 UNIT/0.5 ML VIAL SQ SCH (07:59)
[2022-06-03] MEDS: ESCITALOPRAM OXALATE 10 MG TAB PO SCH (07:59)
[2022-06-03] MEDS: LITHIUM CARBONATE 300 MG TAB PO SCH (08:00)
[2022-06-03] MEDS: levETIRAcetam 500 MG TAB PO SCH (08:00)
[2022-06-03] MEDS: cefTRIAXone SODIUM 2,000 MG in DEXTROSE 5% 50 ML IV SCH (08:21)
[2022-06-03 08:30] LABS: Basophils # (auto) 0.09 K/uL (0-0.2); Basophils % (auto) 0.9 %; Eosinophils # (auto) 0.33 K/uL (0-0.50); Eosinophils % (auto) 3.2 %; Immature Granulocytes # (auto) 0.59 K/uL (0.00-0.02); Immature Granulocytes % (auto) 5.8 %; Lymphocytes % (auto) 13.6 %; Monocytes # (auto) 1.45 K/uL (0.24-0.82); Monocytes % (auto) 14.1 %; Neutrophils % (auto) 62.4 %
[2022-06-03] MEDS ORDERED: GABAPENTIN 800 MG TAB PO SCH (14:00)
--- NOTE | 2022-06-03 18:15 | Discharge Summary ---
Date of Service June 03, 2022 Admission HPI Per Admitting Provider This is a 32yo F with a PMH of bipolar disorder, seizure disorder, migraine headaches, anxiety who presents with worsening urinary symptoms and chills over the past week. Was diagnosed with a UTI last week with dysuria and increased urgency but did not start antibiotic. Over past week, patient has developed chills, fever, lightheadedness, back pain R>L. Endorses poor PO intake, dark concentrated urine and worsened migraine headaches. Feeling much improved with IV fluids in ER. Still experiencing sharp pain in R lower back. Denies syncope, chest pain, SOB, wheezing, hematuria, constipation or diarrhea. Took AM medications today. Admission Exam Per Admitting Provider Constitutional: WD/WN, vitals as above, NAD, sitting up in bed, pleasant, conversing easily Respiratory: normal respiratory effort, lungs clear to auscultation, no wheeze, rales, rhonchi. Normal insp/exp effort, no accessory muscle use Cardiovascular: RRR, no murmur, no edema Vessels: no JVD or carotid bruit Chest: normal inspection of chest Abdomen: Suprapubic tenderness present. Right costophrenic angle tenderness. Musculoskeletal: no cyanosis or clubbing, extremities motor strength 5/5 Skin: no rashes, warm and dry normal turgor Neurologic: PERRL, EOMI, accommodation nl, no face palsy, no dysarthria CN's II- XI intact bilaterally and moves all extremities Psychiatric: A+Ox3, euthymic affect Lymphatic: no cervical or axillary lymphadenopathy : deferred Principal Diagnosis Septic shock secondary to pyelonephritis Acute kidney injury Elevated lithium level Discharge Exam Constitutional: Awake, alert orient x3. Respiratory: normal respiratory effort, lungs clear to auscultation, no wheeze, rales, rhonchi. Normal insp/exp effort, no accessory muscle use Cardiovascular: RRR, no murmur, no edema Vessels: no JVD or carotid bruit Chest: normal inspection of chest Abdomen: Soft, nontender. Musculoskeletal: no cyanosis or clubbing, extremities motor strength 5/5 Skin: no rashes, warm and dry normal turgor Neurologic: PERRL, EOMI, accommodation nl, no face palsy, no dysarthria CN's II- XI intact bilaterally and moves all extremities Psychiatric: A+Ox3, euthymic affect Lymphatic: no cervical or axillary lymphadenopathy : deferred Discharge Data Allergies Allergy/AdvReac Type Severity Reaction Status Date / Time amoxicillin Allergy Unknown RASH Verified 04/07/22 10:15 Penicillins Allergy Verified 04/07/22 10:15 Consultations 05/29/22 15:20 ED Decision to Admit Stat 05/30/22 02:29 Consult Software Configuration Manager Routine Ordered Studies 05/29/22 14:25 CT abd pelvis wo con Stat Hospital Course (1) Sepsis: (2) Pyelonephritis: Plan Patient is a 32-year-old female with past medical history of bipolar disorder, anxiety disorder, 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 In the ED, she was hypotensive; other vital stable. She had leukocytosis, lactic acidosis and AVELINO. She was given IV fluids and IV antibiotics; admitted to telemetry floor. Few hours after admission to the floors, patient's blood pressure dropped and was unresponsive to IV fluids. She was transferred to ICU for vasopressor support. She was treated with vasopressors while in ICU. She is started to respond to antibiotics; had improved urine output and decreased vasopressor requirement. Her urine culture was positive for E. coli; was sensitive to ceftriaxone and Cipro. Her blood culture was negative for any growth. Patient was discharged on ciprofloxacin to complete 10-day course of antibiotics. Her creatinine down trended to baseline at discharge. Her lithium level was elevated to 1.5 on admission likely due to AVELINO. Her subsequently lithium level down trended and patient was started back on her home dose. Patient was instructed to follow-up with her primary care doctor next week. Total Time Total Time Spent Total Time Spent (In Minutes): 35 Total Time Includes: Examination of the Patient, Discharge Planning, Medication Reconciliation, Communication With Other Providers and Other Discharge Plan Discharge Items Patient Disposition: Home - Self-Care Reason For Visit: SEPSIS,PYELONEPHRITIS Discharge Diagnosis: Pyelonephritis Acute Kidney Injury Activity: Resume your previous activity Non-emergency contact: Primary Care Provider Call non-emergency contact if: you have any medication questions and your symptoms worsen Follow-up/Referrals: Adiel Yin MD [Primary Care Provider] - (Date & Time 06/07/2022 1:00 PM Provider Adiel Yin MD Department [facility] ) Diet: Regular Addtl Attending Provider Instructions: You were admitted here with Pyelonephritis. You received iv antibiotics and iv fluids while you were hospitalized. Prescription of Ciprofloxacin 500mg twice daily is sent to your pharmacy for 6 more days. A follow up appointment will be made with your PCP for sometime next week. Pending Studies at Discharge: No Stand-Alone Forms: My [facility] [employer], Smoking Cessation Medications and DC Order Prescriptions: New ciprofloxacin HCl [Cipro] 500 mg tablet 500 mg PO BID 6 Days Qty: 12 0RF Continued rizatriptan [Maxalt] 10 mg tablet 10 mg PO .COMPLEX PRN (Reason: migraine headache) Qty: 27 3RF Rx Instructions: take 1 tab at onset of headache; if no relief may repeat in 2hr prn verapamil 180 mg tablet extended release 180 mg PO DAILY 90 Days Qty: 90 3RF levetiracetam 1,000 mg tablet 1,000 mg PO BID 90 Days Qty: 180 3RF gabapentin 800 mg tablet 800 mg PO TID Qty: 270 Rx Instructions: morning,noon and bedtime lithium carbonate 600 mg capsule 600 mg PO [facility] propranolol 20 mg tablet 20 mg PO BID PRN (Reason: Anxiety) escitalopram oxalate 10 mg tablet 10 mg PO QAM Discharge Orders: Discharge Order (Routine); Ordered 06/03/22 Ordered By: Karthikeyan Adams Admission Data Admit Date/Time: 05/29/22 15:41 Attending Provider: Karthikeyan Adams Admit Provider: Karthikeyan Adams Primary Care Provider: Adiel Yin Other Providers: Karthikeyan Adams ; Partha Maldonado Other Interventions: Discharge Summary Assessment (RN) Last Done: 06/03/22 11:20
== END 2022-06-03 12:47 | disposition home or self-care (01) | DRG 871 ==
LOC: ED 13:06 → SUATTDRO 15:41 → 4W 15:41 → 1E 05-30 02:27 → 2N 06-02 17:49